=== PATIENT | male | born 1935 | race Caucasian/White ===

== ENCOUNTER 2022-07-19 08:30 | Outpatient (CLI) | payer MEDICARE, BC, SELFPAY ==
--- NOTE | ~2022-07-19 | CT_ITS ---
CT of the Abdomen and Pelvis: Indication: Bladder cancer Technique: 2.5 mm axial scans were obtained through the abdomen and pelvis prior to and following in travenous administration of 130 cc of Omnipaque 350. Dose reduction technique was used on this scan b y utilizing automated exposure control and iterative reconstruction technique. The dose-length produc t (DLP) was 464.66 mGy-cm. Findings: Scans through the lung bases demonstrate 9 mm right basilar pulmonary nodule (axial image 15), with focal internal calcification. The liver, spleen, pancreas, gallbladder, adrenals and kidneys are within normal limits. There are at herosclerotic calcifications of the aorta. There is extensive lymphadenopathy throughout the retrope ritoneum/para-aortic regions, extending along the bilateral common and external iliac chains. Largest individual node probably measures approximately 2.1 x 1.5 cm at the right external iliac chain.. No bowel obstruction or bowel wall thickening. There is no evidence to suggest acute appendicitis. Images through the pelvis were performed. There is apparent large mass with internal calcification at the superior aspect of the urinary bladder extending to the right side, measuring up to approximatel y 5.8 x 6.0 x 3.2 cm in extent. Fat-containing left inguinal hernia present. Prostate gland is not en larged. Impression: Large urinary bladder mass, as detailed above, consistent with history of bladder carcinoma. Extensive lymphadenopathy involving the retroperitoneum and bilateral common and external iliac chain s, as detailed above, consistent with sudha metastatic disease. 9 mm right basilar pulmonary nodule with focal internal calcification. This lesion is indeterminate. If it will affect management, then tissue sampling or PET scan could be considered. Comparison with a ny more remote prior exams would also be useful to assess for the chronicity of this nodule. Please n ote this nodule was not well seen on dedicated chest CT due to mild motion artifact at the lung bases . Reviewed, dictated and finalized at location M. Impression: Large urinary bladder mass, as detailed above, consistent with history of bladd er carcinoma. Extensive lymphadenopathy involving the retroperitoneum and bilateral common an d external iliac chains, as detailed above, consistent with sudha metastatic di sease. 9 mm right basilar pulmonary nodule with focal internal calcification. This les ion is indeterminate. If it will affect management, then tissue sampling or PET scan could be considered. Comparison with any more remote prior exams would al so be useful to assess for the chronicity of this nodule. Please note this nodu le was not well seen on dedicated chest CT due to mild motion artifact at the l cali bases.
--- NOTE | ~2022-07-19 | CT_ITS ---
Clinical Indication: Malignant neoplasm of bladder CT Scan of the Chest with Contrast: Technique: Contiguous sections were acquired throughout the chest after intravenous administration of 130 cc of Omnipaque 350. Dose reduction technique was used on this scan by utilizing automated expos ure control and iterative reconstruction technique. The dose-length product (DLP) was 147.57 mGy-cm. Findings: There is no evidence of any significant mediastinal, hilar or axillary lymphadenopathy. No aortic ane urysm or dissection seen. There are atherosclerotic ossifications of the aorta and coronary arteries. There is no evidence of pleural or pericardial effusion. There is mild bibasilar chronic interstitial disease versus atelectatic change. No suspicious pulmona ry nodule identified. Images through the upper abdomen reveal no abnormalities. There is DISH of the thoracic spine. Impression: No evidence for active malignancy or metastatic disease in the thorax. Mild bibasilar chronic interstitial pulmonary disease versus atelectatic change. Reviewed, dictated and finalized at [facility]. Impression: No evidence for active malignancy or metastatic disease in the thorax. Mild bibasilar chronic interstitial pulmonary disease versus atelectatic change .
[2022-07-19 08:55] LABS: Estimated Glomerular Filt Rate > 60
== END 2022-07-19 08:31 | disposition home or self-care (01) ==
PROVIDERS: PCP Internal Medicine; Visit Provider Radiology Radiation Oncology
DX: C67.9 Malignant neoplasm of bladder, unspecified (principal)
CPT/HCPCS: 71260; 74178; Q9967

== ENCOUNTER 2022-07-27 10:44 | Outpatient (CLI) | payer MEDICARE, BC, SELFPAY ==
[2022-07-27 11:00] LABS: Basophils Percent Auto 0.2 % (0.2-1.2); Eosinophils Percent Auto 0.1 % (0-4.4); Hematocrit 32.4 % (42.0-52.0); Immature Granulocyte Absolute 0.04 K/mm3 (0.00-0.031); Immature Granulocyte Percent A 0.4 % (0-0.5); Lymphocytes Percent Auto 10.8 % (18.3-44.2); Mean Corpuscular Hemoglobin 33.1 pg (26-34); Mean Corpuscular Volume 97.6 fl (80-100); Mean Platelet Volume 10.5 fl (7.4-10.4); Monocytes Absolute Auto 0.9 K/mm3 (0.1-0.6); Monocytes Percent Auto 8.4 % (2.6-8.5); Neutrophils Absolute Auto 8.2 K/mm3 (1.3-6.7); Neutrophils Percent Auto 80.1 % (45.5-73.1); Nucleated Red Blood Cells Perc 0.3 % (0.0-0.2); Platelet Count Result 280 k/mm3 (150-375); Red Blood Count 3.32 M/mm3 (4.6-6.20); Red Cell Distribution Width 18.6 % (11.5-14.5); White Blood Count 10.2 K/mm3 (4.5-10.0)
[2022-07-27 16:27] LABS: Alanine Aminotransferase 20 U/L (6-50); Albumin Level 3.8 g/dL (3.5-5.1); Alkaline Phosphatase 50 U/L (38-126); Anion Gap 9 mmol/L (8-16); Aspartate Amino Transferase 23 U/L (17-59); Bilirubin,Total 0.7 mg/dL (0.2-1.3); Blood Urea Nitrogen 29 mg/dL (9-20); Calcium 8.8 mg/dL (8.4-10.2); Carbon Dioxide 26 mmol/L (22-30); Chloride 99 mmol/L (98-107); Estimated Glomerular Filt Rate > 60; Glucose 158 mg/dL (65-110); Sodium 134 mmol/L (137-145)
== END 2022-07-27 10:45 | disposition home or self-care (01) ==
LOC: ANHLAB 10:47
PROVIDERS: PCP Internal Medicine; Visit Provider Internal Medicine Hematology & Oncology
DX: C67.9 Malignant neoplasm of bladder, unspecified (principal)
CPT/HCPCS: 36415; 80053; 85025

== ENCOUNTER 2022-08-09 01:15 | Day surgery (SDC) | payer MEDICARE, BC, SELFPAY ==
--- NOTE | 2022-07-28 14:33 | PC.NURSE ---
Report to the Outpatient Waiting Room, entrance under the green pavilion located off [facility], at time __1100 on date _08/03/22 . Planned Procedure Time: _1300 . Time changes happen often and if your time is changed the preop area will call you the afternoon before. - You and your visitor will be asked to self-screen and do not enter if you have any COVID symptoms. - A mask is optional within the hospital at this time. Patients may have clear liquids (water, carbonated beverages, clear teas, apple juice) until 3 hours prior to surgery with a maximum of 20 ounces. - No food from midnight until time of surgery - Infants may have breast milk until 4 hours before surgery, infant formula 6 hours prior to surgery. - Children will be allowed to drink immediately following surgery. If applicable, please bring a bottle or sippy cup to assist with drinking. Juice, water, soda, and popsicles are readily available. For infants on formula, please bring formula the day of surgery. Pacifiers are allowed. Take the following medications with a SIP of water the morning of surgery: __METOPROLOL DO NOT STOP ANY OF YOUR OTHER PRESCRIPTION MEDICATIONS PRIOR TO SURGERY ?EXCEPT THE FOLLOWING Medications to discontinue per physician __WIFE STATES CLOPIDOGREL_LAST DOSE 07/28/[address] PARRISH Please no make-up, nail azeri, hairspray, perfume, deodorant, or body powder the day of surgery. No jewelry (including any body piercings) or valuables the day of surgery, leave them at home. Please take a shower or bath the night before, or the morning of, surgery with an antibacterial soap. Wear comfortable, loose fitting clothing. Children are encouraged to wear pajamas. - Jewelry must be removed prior to entering the operating room. Rings and piercings that are not removed may be cut off. - The hospital will not accept responsibility for valuables. - Please leave all valuables, including medications, at home the day of surgery. If you are going home after surgery, a licensed regional dedicated truck driver must drive you home. - NO public transportation without another adult if you receive anesthesia. - We recommend that an adult stay with you for 24 hours following discharge. - We also recommend that you do not drive, make important decision, drink alcoholic beverages, or take any drugs that were not prescribed by your health care provider for at least 24 hours after your discharge time. For Pediatric surgeries, we recommend two adults accompany the child home. Follow any additional instructions given to you from your surgeon. If you or anyone in your household have experienced Covid symptoms in the past week, please notify your surgeon or the nurse liaison at the phone number below for possible testing. Telephone instructions given to _PT'S OLIVIA and asked if any additional questions and then verbalized understanding. Patient advised to call surgeon office or pre surgery nurse liaison [phone] if any additional questions.
[2022-07-28 14:58] VITALS: BMI 22.3
--- NOTE | 2022-08-05 12:44 | PC.NURSE ---
Report to the Outpatient Waiting Room, entrance under the green pavilion located off [facility], at time __0800 on date __08/09/22 . Planned Procedure Time: __1000 . Time changes happen often and if your time is changed the preop area will call you the afternoon before. - You and your visitor will be asked to self-screen and do not enter if you have any COVID symptoms. - A mask is optional within the hospital at this time. Patients may have clear liquids (water, carbonated beverages, clear teas, apple juice) until 3 hours prior to surgery with a maximum of 20 ounces. - No food from midnight until time of surgery - Infants may have breast milk until 4 hours before surgery, infant formula 6 hours prior to surgery. - Children will be allowed to drink immediately following surgery. If applicable, please bring a bottle or sippy cup to assist with drinking. Juice, water, soda, and popsicles are readily available. For infants on formula, please bring formula the day of surgery. Pacifiers are allowed. Take the following medications with a SIP of water the morning of surgery: ___METOPROLOL DO NOT STOP ANY OF YOUR OTHER PRESCRIPTION MEDICATIONS PRIOR TO SURGERY ?EXCEPT THE FOLLOWING Medications to discontinue per physician _WIFE STATES CLOPIDOGREL LAST _DOSE 07/28/22 Date to take last dose Please no make-up, nail luxembourger, hairspray, perfume, deodorant, or body powder the day of surgery. No jewelry (including any body piercings) or valuables the day of surgery, leave them at home. Please take a shower or bath the night before, or the morning of, surgery with an antibacterial soap. Wear comfortable, loose fitting clothing. Children are encouraged to wear pajamas. - Jewelry must be removed prior to entering the operating room. Rings and piercings that are not removed may be cut off. - The hospital will not accept responsibility for valuables. - Please leave all valuables, including medications, at home the day of surgery. If you are going home after surgery, a licensed airport shuttle driver must drive you home. - NO public transportation without another adult if you receive anesthesia. - We recommend that an adult stay with you for 24 hours following discharge. - We also recommend that you do not drive, make important decision, drink alcoholic beverages, or take any drugs that were not prescribed by your health care provider for at least 24 hours after your discharge time. For Pediatric surgeries, we recommend two adults accompany the child home. Follow any additional instructions given to you from your surgeon. If you or anyone in your household have experienced Covid symptoms in the past week, please notify your surgeon or the nurse liaison at the phone number below for possible testing. Telephone instructions given to __PT'S OLIVIA and asked if any additional questions and then verbalized understanding. Patient advised to call surgeon office or pre surgery nurse liaison [phone] if any additional questions.
--- NOTE | 2022-08-08 13:16 | P.PNAN_ITS ---
Anes - Initial Pre Proc Eval Procedure: Operation Date: 08/09/22 10:00 Proposed Procedures p Insertion Rama Cath - Kathy Coffey MD Date/Time: 08/08/22 13:16 Surgeon: Kathy Coffey MD Pre Op Diagnosis: malignant neoplasm of urinary bladder, Unspe site Patient Data Age: 87 Gender: M Height: 1.8 m Weight: 72.6 kg Allergies Allergy/AdvReac Type Severity Reaction Status Date / Time No Known Allergies Allergy Verified 08/09/22 09:07 Home Medications Medication Instructions Recorded Confirmed Type clopidogrel 75 mg tablet 75 mg PO DAILY 11/29/21 08/04/22 History lorazepam 0.5 mg tablet 0.5 mg PO BID 11/29/21 08/04/22 History metoprolol tartrate 25 mg tablet 25 mg PO BID 11/29/21 08/04/22 History simvastatin 20 mg tablet 20 mg PO DAILY 11/29/21 08/04/22 History temazepam 30 mg capsule 30 mg PO HS 11/29/21 08/04/22 History phenazopyridine 200 mg tablet 200 mg PO TID 07/25/22 08/04/22 History Patient hx anesthesia problems: none Family hx anesthesia problems: none Results Review: All pre-operative results and documents have been reviewed as part of the pre- operative evaluation. 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 Social History Social History Smoking packs per day: 1.5 Smoking cigarettes per day: 30.0 Years smoked: 20 Smoking pack-years: 30.00 Smoking status: Former smoker Tobacco type: cigarettes Smoking end date: 02/21/88 Living arrangements: with family Spiritual care concerns: No Anes - Eval Final PreProcedure Day of Procedure 08/08/22 13:16 Patient weight: normal Heart: regular rate and rhythm Lungs: clear to auscultation and normal air movement Airway: Mallampati scale class II Neurological: alert and oriented Last oral intake: >/= 8 hours ASA classification: III Emergent: no Anesthetic plan: proceed Anesthesia type and monitoring: general GIVS and standard monitoring Results Review: All pre-operative results and documents have been reviewed as part of the pre- operative evaluation. Informed Consent: The patient's anesthetic plan and its attendant risks and benefits were discussed with the patient/family/POA. Questions were solicited and answers provided to the satisfaction of the patient/family/POA.
--- NOTE | ~2022-08-09 | XR_ITS ---
XR chest port-a-cath/central, XR fl guide central line place 08/09/2022 11:06 (accession [id number]), 08/09/2022 10:54 (accession [id number]) Indication: Insertion of portacatheter Procedure: 2 fluoroscopic images of the chest. 13 seconds of fluoroscopy. Postprocedure portable ches t. Comparison: No prior studies for comparison. Findings: Heart size is normal. Portacatheter tip in the SVC. Osteopenia. Heart size normal. No focal air space disease, pulmonary edema, pleural effusion or suspected pneumothorax. No acute osseous abn ormality. Impression: 1: No acute cardiopulmonary disease. Reviewed, dictated and finalized at location L. Impression: 1: No acute cardiopulmonary disease. Impression: 1: No acute cardiopulmonary disease.
[2022-08-09 08:08] VITALS: BP 121/54; PULSE 65; RESP 16; TEMP 36.3; O2SAT 95
[2022-08-09 08:10] VITALS: BMI 21.7
[2022-08-09] MEDS: LACTATED RINGERS 1,000 ML 30 ML IV CONT (08:45)
[2022-08-09] MEDS: KETOROLAC 15 MG/ML VIAL (*BKC) IV PUSH (09:03)
--- NOTE | 2022-08-09 09:04 | PM.IMHP ---
H&P: HPI History of Present Illness Date/Time: 08/09/22 09:04 Chief Complaint: bladder cancer Narrative: Pt is a 87 y/o M presenting c bladder cancer. Pt is going to undergo treatment c Keytruda and needs access. Pt denies any previous central venous catheterization. Pt is right handed. 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 Social History Social History Smoking packs per day: 1.5 Smoking cigarettes per day: 30.0 Years smoked: 20 Smoking pack-years: 30.00 Smoking status: Former smoker Tobacco type: cigarettes Smoking end date: 02/21/88 Living arrangements: with family Spiritual care concerns: No Meds Home Medications and Allergies Home Medications Medication Instructions Recorded Confirmed Type clopidogrel 75 mg tablet 75 mg PO DAILY 11/29/21 08/04/22 History lorazepam 0.5 mg tablet 0.5 mg PO BID 11/29/21 08/04/22 History metoprolol tartrate 25 mg tablet 25 mg PO BID 11/29/21 08/04/22 History simvastatin 20 mg tablet 20 mg PO DAILY 11/29/21 08/04/22 History temazepam 30 mg capsule 30 mg PO HS 11/29/21 08/04/22 History phenazopyridine 200 mg tablet 200 mg PO TID 07/25/22 08/04/22 History Allergies Allergy/AdvReac Type Severity Reaction Status Date / Time No Known Allergies Allergy Verified 08/09/22 09:07 Exam Const: General: cooperative, comfortable, no acute distress and ill appearing HENMT: Head: normal to inspection Neck: Neck: normal visual inspection, full ROM and no lymphadenopathy Chest: Chest palpation & inspection: normal inspection of the chest Resp: Auscultation: clear to auscultation bilaterally Cardio: Rate: regular rate Rhythm: regular rhythm GI: Inspection: normal to inspection Assessment and Plan Assessment and plan (1) Bladder cancer: Code(s): C67.9 - Malignant neoplasm of bladder, unspecified Status: Acute Assessment and Plan: will setup for VAD placement on left given right handedness
--- NOTE | 2022-08-09 09:07 | WPDHPUPDATE1 ---
History and Physical Update Update Date/Time: 08/09/22 09:07 History and Physical has been reviewed, including an updated exam of the patient. There are NO changes in the patient's condition. Risks, benefits, and alternatives have been discussed and questions answered. Patient agrees to proceed with procedure.
[2022-08-09 09:14] LABS: INR 1.1; Prothrombin Time 14.7 Seconds (11.1-14.7)
[2022-08-09 09:15] LABS: Partial Thromboplastin Time 37.4 SECONDS (22.3-36.8)
[2022-08-09] MEDS: ceFAZolin 2 GM/D5W 50 ML 2 GM/50 ML BAG IVPB (10:16)
[2022-08-09] MEDS: HEPARIN SODIUM, PORCINE 10,000 UNITS/10 ML VIAL 10000 UNITS IV PUSH (10:34)
[2022-08-09] MEDS: BUPIVACAINE/EPINEPHRINE 0.5% 50 ML VIAL INFILTRATE (10:34)
[2022-08-09] MEDS: HEPARIN SODIUM 5,000 UNITS/ML VIAL 5000 UNITS IRRIGATION (10:40)
--- NOTE | 2022-08-09 10:52 | W.PM.PROC2 ---
Procedure Note - Detailed Date of Procedure 08/09/22 Pre-op Diagnosis Bladder cancer Post-op Diagnosis Same Procedure Performed Placement of left internal jugular venous access device under both ultrasound and fluoroscopic guidance Surgeon Kathy Coffey MD Anesthesia MAC and Local Indications 87-year-old male with bladder cancer needing access for treatment Findings 1st stick left IJ Description of Procedure Patient was brought into the operating room and placed in the supine position. After adequate induction of mac anesthesia, the patient was prepped and draped in normal sterile fashion. Time-out was then done to verify the patient's identity, as well as the procedure being performed. I began by making a small incision in the left chest. I then used the ultrasound to gain access into the left internal jugular vein. Once access was gained, I placed the guidewire in the vein and confirmed proper positioning. I then locally anesthetized the area in the left chest. I then enlarged the incision including making a subcutaneous pocket inferiorly to allow placement of the port itself. I proceeded to tunnel the catheter from the chest to the left neck insertion site. I then placed a dilating sheath over the guidewire into the left internal jugular vein via sterile Seldinger technique. This was once again done and confirmed via fluoroscopic guidance. I then removed the dilator and the guidewire, now just leaving the sheath in the vein. I then fed the previously flushed catheter into the left internal jugular vein under fluoroscopic guidance. At approximately 27 cm, the catheter was noted to be near the atrial caval junction. I then peeled away the sheath, now just leaving the catheter in the vein. I then was able to easily draw and flush from the catheter. The catheter was cut to fit and attached to the port itself. The port was placed into the previously made subcutaneous pocket and sutured in with 0 Ethibond suture. Final fluoroscopic view showed the termination of the catheter at the atrial caval junction with a nice smooth curvature back to the port itself. I was able to gain access to the port with a Guardado needle and was able to easily draw and flush from the port. I then flushed 4 cc of a final heparin flush into the port. The incision was closed with 3 0 Vicryl suture in the subcutaneous tissue and the skin was closed with 4 O Monocryl subcuticular suture. Dermabond was then placed on wound. The patient tolerated the procedure well and will be sent to the recovery room in stable condition. Implants left internal jugular venous access device Estimated Blood Loss 5 Pathology None sent Complications No immediate complications Condition Stable Disposition PACU [facility] Billing Surgery - Charge Forward: Surgery Billing
[2022-08-09 10:55] VITALS: BP 114/55; PULSE 64; RESP 14; O2SAT 95
[2022-08-09 11:25] VITALS: BP 140/44; PULSE 69; RESP 16
[2022-08-09 11:55] VITALS: BP 127/55; PULSE 71; RESP 16
== END 2022-08-09 12:00 | disposition home or self-care (01) ==
PROVIDERS: PCP Internal Medicine; Visit Provider Surgery
PROC: (CPT 36561; principal; 2022-08-09 10:00)
DX: C67.9 Malignant neoplasm of bladder, unspecified (principal); I25.10 Atherosclerotic heart disease of native coronary artery without angina pectoris; E78.5 Hyperlipidemia, unspecified; I25.2 Old myocardial infarction; I12.9 Hypertensive chronic kidney disease with stage 1 through stage 4 chronic kidney disease, or unspecified chronic kidney disease; E11.22 Type 2 diabetes mellitus with diabetic chronic kidney disease; N18.9 Chronic kidney disease, unspecified; F41.9 Anxiety disorder, unspecified; Z85.46 Personal history of malignant neoplasm of prostate; Z87.891 Personal history of nicotine dependence
CPT/HCPCS: 36561; 36415; 77001; 85610; 85730; C1788; J0690; J1644; J1885; J2704; J7040; J7120

== ENCOUNTER 2022-09-03 09:17 | Inpatient (IN) | payer MEDICARE, BC, SELFPAY ==
[2022-09-03] VITALS (29 sets, daily range): BP systolic 116–150; BP diastolic 49–102; PULSE 85–176; RESP 14–32; TEMP 36.4–36.9; O2SAT 91–99; BMI 20.5
--- NOTE | 2022-09-03 | ECG_ITS ---
Measurements Intervals Calypso Rate: 179 P: NH: 0 QRS: -9 QRSD: 98 T: 131 QT: 242 QTc: 418 Interpretive Statements ATRIAL FIBRILLATION WITH RAPID VENTRICULAR RESPONSE EARLY PRECORDIAL R/S TRANSITION CONSIDER INFERIOR INFARCT, AGE INDETERMINATE BORDERLINE ST-T WAVE ABNORMALITY- HIGH LATERAL LEADS BASELINE ARTIFACT- I, II, AVR, AVL ABNORMAL ECG NO PREVIOUS ECG AVAILABLE FOR COMPARISON Electronically Signed On 09-03-2022 10:32:17 CDT by Yg HEARD
--- NOTE | ~2022-09-03 | CT_ITS ---
EXAMINATION: CT abdomen pelvis w con DATE: 09/03/2022 11:44 INDICATION: Suprapubic tenderness. History of bladder cancer. TECHNIQUE: Computed tomography (CT) of the abdomen and pelvis was performed with 100 CC Omnipaque 350 intravenous contrast. Automated exposure control and iterative reconstruction technique were employe d. Exam dose: 513.55 mGy-cm total exam DLP. COMPARISON: 07/19/2022 CT abdomen pelvis FINDINGS: Approximately 9 mm right lower lobe nodule with a nidus of the eccentric calcification is a gain noted. Bilateral lower lobe dependent atelectasis, right greater than left. Minimal right pleura l effusion. Cardiomegaly. Coronary artery calcifications. No pericardial effusion. The liver, gallbladder, bile ducts are unremarkable. Normal splenic size. Approximately 6.5 mm cystic lesion of the body of the pancreas (series 3 image 46).. An additional 5 mm cystic lesion of the pancreatic body is suggested (series 3 image 40). Bilateral adrenal hypertrophy. Approximately 1 cm anterior upper pole right renal probable cyst. The kidneys are otherwise unremarka ble. No urinary tract calculus or hydroureteronephrosis is detected. Very prominent irregular mass with calcification along the right lateral and superior fernandez of the ur inary bladder consistent with bladder malignancy. Radiopaque seeds in the prostate gland. There is atherosclerotic calcification of the abdominal aorta, celiac, superior mesenteric, renal and inferior mesenteric as well as iliac and femoral arteries. No abdominal aortic aneurysm. Again noted is periaortic and aortocaval and bilateral iliac lymphadenopathy consistent with metastat ic disease. Normal appendix. No bowel obstruction or intraperitoneal free air. Bilateral fat-containing inguinal hernias, left larger than right. Small fat-containing umbilical her radha. Prominent multilevel degenerative disc disease of the lumbar spine. Osteopenia. No suspicious osteoly tic or osteoblastic lesions are noted. IMPRESSION: Persistent large bladder mass consistent with malignancy, metastatic abdominal and pelvi c lymphadenopathy 2 small cystic lesions of the pancreas; differential diagnosis includes intraductal papillary mucinou s neoplasm, mucinous cystic neoplasm, serous cystadenoma, neuroendocrine tumor, pseudocysts. Probable 1 cm cyst, anterior upper pole right kidney Reviewed, dictated and finalized at [facility]. Reviewed, dictated and finalized at [facility]. IMPRESSION: Persistent large bladder mass consistent with malignancy, metastat ic abdominal and pelvic lymphadenopathy 2 small cystic lesions of the pancreas; differential diagnosis includes intradu ctal papillary mucinous neoplasm, mucinous cystic neoplasm, serous cystadenoma, neuroendocrine tumor, pseudocysts. Probable 1 cm cyst, anterior upper pole right kidney
--- NOTE | ~2022-09-03 | XR_ITS ---
XR chest 1V portable DATE: 09/03/2022 09:55 INDICATION: Atrial fibrillation with rapid ventricular response TECHNIQUE: Portable AP chest on 09/03/2022 at 0951 hours COMPARISON: 08/09/2022 portable AP chest at 1105 hours FINDINGS: Left internal jugular Port-A-Cath catheter is again noted, distal tip overlying upper right atrium. Normal heart size. Is aortic arch calcification, mild aortic unfolding. No pulmonary infiltrate or consolidation, pleural effusion or pulmonary vascular congestion or pneumo thorax is detected. IMPRESSION: No active cardiopulmonary disease or significant change since 08/09/2022 Reviewed, dictated and finalized at [facility]. IMPRESSION: No active cardiopulmonary disease or significant change since 2022
--- NOTE | ~2022-09-03 | XR_ITS ---
EXAMINATION: XR chest 1V portable DATE: 09/05/2022 13:30 INDICATION: Shortness of breath. TECHNIQUE: A single frontal view of the chest was obtained. COMPARISON: Chest single view 09/03/2022, CT abdomen and pelvis 09/03/2022, chest CT 07/19/2022. FINDINGS: Again seen are reticular opacities in the lower lung zones. No pleural effusion or pneumoth orax. The heart size is normal. There is a left internal jugular port with tip at superior cavoatrial junction. IMPRESSION: 1. Stable mild chronic interstitial lung disease. Reviewed, dictated and finalized at location [facility].
[2022-09-03] MEDS: dilTIAZem HCl INJ 25 MG/5 ML VIAL 10 MG IV PUSH (09:29)
[2022-09-03 09:33] LABS: Basophils Percent Auto 0.2 % (0.2-1.2); Eosinophils Percent Auto 0.2 % (0-4.4); Hematocrit 28.3 % (42.0-52.0); Immature Granulocyte Absolute 0.19 K/mm3 (0.00-0.031); Immature Granulocyte Percent A 1.5 % (0-0.5); Lymphocytes Absolute Auto 2.16 K/mm3 (0.9-3.2); Lymphocytes Percent Auto 16.5 % (18.3-44.2); Mean Corpuscular HGB Conc 31.8 g/dl (32-36); Mean Corpuscular Hemoglobin 32.5 pg (26-34); Mean Corpuscular Volume 102.2 fl (80-100); Mean Platelet Volume 9.9 fl (7.4-10.4); Monocytes Percent Auto 7.6 % (2.6-8.5); Neutrophils Absolute Auto 9.7 K/mm3 (1.3-6.7); Nucleated Red Blood Cells Absolute Auto 0.3 K/mm3 (0.0-0.012); Nucleated Red Blood Cells Perc 2.3 % (0.0-0.2); Platelet Count Result 323 k/mm3 (150-375); Red Blood Count 2.77 M/mm3 (4.6-6.20); White Blood Count 13.1 K/mm3 (4.5-10.0)
--- NOTE | 2022-09-03 09:38 | ED.GENADULT ---
HPI - General Adult General Chief complaint: Arrhythmia/Palpitations <Eligio Mullins PA-C - Last Filed: 09/03/22 17:11> Stated complaint: weakness <Eligio Mullins PA-C - Last Filed: 09/03/22 17:11> Time Seen by Provider: 09/03/22 09:19 <Eligio Mullins PA-C - Last Filed: 09/03/22 17:11> Source: patient <Eligio Mullins PA-C - Last Filed: 09/03/22 17:11> Mode of arrival: EMS <AYANA Rodriguez Last Filed: 09/03/22 17:11> Limitations: no limitations <Eligio Mullins PA-C - Last Filed: 09/03/22 17:11> History of Present Illness HPI narrative: This is a 87-year-old male with PMH of stage IV bladder cancer and active treatment who presents to the ED via EMS with chief complaint generalized weakness and poor appetite for the last couple of weeks. Patient and family report that he had a fall last night while going from the bathroom to the bedroom. Patient's is here and states she had to get neighbors to help get him up a few minutes later. However, denies having any pain whatsoever. He reports he just feels generally very weak and tired. He states it is hard to eat. Denies any fevers, chills, chest pain, shortness of breath, leg swelling, cough. Denies abdominal pain or vomiting. Denies GI bleeding symptoms Per EMS patient is an active A-fib with RVR with rate in the high 170s in route. Pressures stable in the 120s over 90s. Per chart review patient had a partial tumor resection of his bladder cancer last October. He follows with Dr. Royal for oncology. Receiving Keytruda treatments currently. <Eligio Mullins PA-C - Last Filed: 09/03/22 17:11> Related Data Home medications: Home Medications Medication Instructions Recorded Confirmed clopidogrel 75 mg tablet (Plavix) 75 mg PO DAILY 09/03/22 09/03/22 lorazepam 0.5 mg tablet 0.5 mg PO BID 09/03/22 09/03/22 metoprolol tartrate 25 mg tablet 25 mg PO DAILY 09/03/22 09/03/22 phenazopyridine 200 mg tablet 200 mg PO TID PRN dysuria 09/03/22 09/03/22 simvastatin 20 mg tablet 20 mg PO DAILY 09/03/22 09/03/22 temazepam 30 mg capsule 1 mg PO QHS 09/03/22 09/03/22 <Eligio Mullins PA-C - Last Filed: 09/03/22 17:11> Allergies/adverse reactions: Allergies Allergy/AdvReac Type Severity Reaction Status Date / Time No Known Allergies Allergy Verified 09/03/22 09:30 <Eligio Mullins PA-C - Last Filed: 09/03/22 17:11> [facility] Past Medical History Medical History: Medical History (Updated 09/03/22 @ 17:59 by Donita Vega MD) Basal cell carcinoma of nose Coronary artery disease Hyperlipidemia Hypertension Malignant neoplasm metastatic from bladder (2021) Prostate cancer (2004) Status post radiation. <Eligio Mullins PA-C - Last Filed: 09/03/22 17:11> Surgical History Surgical History: Surgical History (Updated 09/03/22 @ 14:31 by La Nieves PA-C) History of basal cell carcinoma excision History of bilateral carpal tunnel release History of bilateral cataract extraction History of coronary artery stent placement History of hand surgery History of transurethral resection of bladder tumor (TURBT) <Eligio Mullins PA-C - Last Filed: 09/03/22 17:11> Family History Family History: Family History Mother Breast cancer Father Throat cancer Sibling Pancreatic cancer <Eligio Mullins PA-C - Last Filed: 09/03/22 17:11> Social History Social History: Social History Social History: Surrogate medical decision maker: Code status: Smoking status: Unknown if ever smoked Alcohol intake: never Substance use: never Lack of Transportation: No Lack of Food: Never True Current Housing: I Have Housing Concerned About Future Housing: No Difficulty Paying Gas/Electric Bills: No Difficulty Paying for Meds: No Currently Unemployed: No Education: High School Diploma/
[2022-09-03 09:57] LABS: Alanine Aminotransferase 23 U/L (6-50); Albumin Level 3.9 g/dL (3.5-5.1); Alkaline Phosphatase 69 U/L (38-126); Anion Gap 12 mmol/L (8-16); Aspartate Amino Transferase 30 U/L (17-59); Bilirubin,Total 2.5 mg/dL (0.2-1.3); Blood Urea Nitrogen 25 mg/dL (9-20); Calcium 8.8 mg/dL (8.4-10.2); Carbon Dioxide 25 mmol/L (22-30); Chloride 100 mmol/L (98-107); Estimated CRCL calculation 44 ml/min; Estimated Glomerular Filt Rate > 60; Glucose 115 mg/dL (65-110); Magnesium 2.3 mg/dL (1.6-2.3); Sodium 137 mmol/L (137-145)
[2022-09-03] MEDS: dilTIAZem HCl INJ 25 MG/5 ML VIAL 15 MG IV PUSH (09:59)
[2022-09-03 10:02] LABS: Anisocytosis 1+ (NORMAL); Hypochromasia 1+ (NORMAL); Macrocytosis 1+ (NORMAL); Ovalocytes 1+ (NORMAL)
[2022-09-03 10:03] LABS: Basophilic Stippling 1+ (NORMAL); Schistocytes Rare (NORMAL)
[2022-09-03 10:05] LABS: Alanine Aminotransferase 24 U/L (6-50); Albumin Level 3.8 g/dL (3.5-5.1); Alkaline Phosphatase 66 U/L (38-126); Aspartate Amino Transferase 37 U/L (17-59); Bilirubin Direct 0.6 mg/dL (0-0.3); Bilirubin,Total 2.4 mg/dL (0.2-1.3)
[2022-09-03 10:07] LABS: INR 1.2; Prothrombin Time 16.2 Seconds (11.1-14.7)
[2022-09-03 10:08] LABS: Partial Thromboplastin Time 38.5 SECONDS (22.3-36.8)
[2022-09-03] MEDS: dilTIAZem 100 MG/100 ML 100 MG/100 ML BAG IV CONT (10:22)
[2022-09-03] MEDS: ENOXAPARIN 40 MG/0.4 ML SYRINGE SUB-Q (11:27)
[2022-09-03 11:41] LABS: Hyaline Casts Urine Present /lpf; Need Manual Microscopic Need Manual; Squamous Epithelial Cell Urine Few /hpf (Few); WBC Clumps Urine Present /HPF
[2022-09-03 11:49] LABS: Appearance Urine Cloudy (Clear); Bilirubin Urine 1+ (Negative); Color Urine Red (Yellow); Glucose Urine UA Negative (Negative); Ketones Urine Negative (Negative); Leukocyte Esterase Ur 3+ LEU/UL (Negative); Nitrate Urine Positive (Negative); Protein Urine 1+ mg/dL (Negative); Specific Grav Ur 1.019 (1.001-1.035)
[2022-09-03 11:58] LABS: Bacteria Urine Trace /hpf; RBC Urine 0-2 /hpf (0-2)
[2022-09-03 12:07] LABS: Add Urine Microscopic? YES
[2022-09-03 12:10] LABS: WBC Urine 21-50 /hpf
[2022-09-03] MEDS: SODIUM CHLORIDE 0.9% IV 1,000 ML 999 ML IV CONT (12:11)
--- NOTE | 2022-09-03 14:12 | PM.IMHP ---
H&P: HPI History of Present Illness Date/Time: 09/03/22 14:30 Chief Complaint: Weakness. Narrative: This is a pleasant 87-year-old male with hypertension, hyperlipidemia, coronary artery disease, prostate cancer in 2004 status post radiation, and metastatic bladder cancer on immunotherapy who presented to the emergency department via EMS from home for evaluation of weakness. The patient provides the following history. He was diagnosed with bladder cancer last year and he was deemed not to be a candidate for chemotherapy or cystectomy. He had several radiation treatments and CT of the abdomen and pelvis at the end of June showed increasing bladder tumor an extensive lymphadenopathy. Radiation treatments were were stopped last month due to adverse effects and he was fairly recently started on Keytruda per Dr. Royal. He has been increasingly weak over time, worse the last several weeks associated with poor appetite. Last night he had a fall and neighbors had come help him up. On arrival to the emergency department he was in atrial fibrillation with rapid ventricular response with rates in the 170s and stable blood pressures. Preliminary workup was significant for a WBC count of 13.1, hemoglobin 9.0, platelets 323, normal electrolytes, BUN 25, creatinine 1.00. Urine was nitrate and leukocyte esterase positive with 21 to 50 WBC and trace bacteria[address] of the abdomen and pelvis showed no acute changes compared to most recent CT. He was started on a diltiazem drip with improvement in his rate and he is being admitted in this setting. At the time my evaluation he complains having to go to the bathroom every 45 minutes and he feels as though he cannot fully evacuate his bladder. Bladder scan showed that he was retaining greater than 500 mL and staff were unable to pass a Rod catheter. Urology was able to place a Rod catheter without issue and the patient reports feeling a lot better now that his bladder is straining. His heart rate has improved significantly as well. He denies fever, chills, sweats, chest pain, shortness a breath, nausea, vomiting, diarrhea. There were no injuries, head trauma, or loss of consciousness in the fall last night. Review of Systems Review of Systems: Twelve systems were reviewed. No fever, chills, or sweats. No recent cold or flu symptoms. He has lost about 45 lb in the last 3 months p.r.n. except as documented, all other systems were reviewed and are negative. FORMERLY [facility], 1928–1983 Past Medical History Medical History (Updated 09/04/22 @ 00:25 by La Nieves PA-C) Basal cell carcinoma of nose Coronary artery disease Hyperlipidemia Hypertension Malignant neoplasm metastatic from bladder (2021) Prostate cancer (2004) Status post radiation. Surgical History Surgical History (Updated 09/03/22 @ 14:31 by La Nieves PA-C) History of basal cell carcinoma excision History of bilateral carpal tunnel release History of bilateral cataract extraction History of coronary artery stent placement History of hand surgery History of transurethral resection of bladder tumor (TURBT) Family History Family History Mother Breast cancer Father Throat cancer Sibling Pancreatic cancer Social History Social History (Updated 09/04/22 @ 14:27 by La Nieves PA-C) Social History: Surrogate medical decision maker: Dorie Neal. Code status: Full code. Smoking status: Unknown if ever smoked Alcohol intake: never Substance use: never Lack of Transportation: No Lack of Food: Never True Current Housing: I Have Housing Concerned About Future Housing: No Difficulty Paying Gas/Electric Bills: No Difficulty Paying for Meds: No Currently Unemployed: No Education: High School Diploma/GED Difficulty w/ Childcare or Family Care: No Spiritual care concerns: No Meds Home Medications and Allergies Home Medications Medication Instructions
[2022-09-03] MEDS: MORPHINE SULFATE (*CRX) 2 MG/ML INJ IV PUSH ×2 (14:13→19:00)
[2022-09-03] MEDS: LIDOCAINE HCL 2% GEL UROJET 10 ML PKG MUCOUS MEM ×2 (15:57→18:11)
--- NOTE | 2022-09-03 16:00 | ADMGEN ---
This patient, Ángel Arango, was admitted to IMU Room 231-01. Patient/family oriented to hospital policies and general routines including ID bracelet, bed and alarms, visiting hours, pain management, procedures, bathroom and other care routines, personal items, smoking policy, room service/diet, and visiting hours. Information on how to activate the Rapid Response Team has been discussed. Patient/Family are encouraged to report perceived risks to care and to ask questions if they do not understand what they are told or what they should do.
[2022-09-03 16:10] LABS: Iron 135 ug/dL (49-181)
[2022-09-03 16:21] LABS: Percent Iron Saturation 47 % (20-50)
[2022-09-03 17:17] LABS: Folic Acid 9.8 ng/mL (2.76->20)
--- NOTE | 2022-09-03 17:56 | WPDURCON ---
Assessment and Plan Assessment and plan (1) Urinary retention: Code(s): R33.9 - Retention of urine, unspecified Status: Acute Assessment and Plan: 87-year-old male with history of prostate cancer status post radiation and metastatic bladder cancer on immunotherapy who presents to the hospital with weakness and found to have clinical signs of urinary tract infection but having urinary retention. - Will plan for catheter placement: Update: able to place a 14 Mohawk catheter via urethra with return of an appropriate volume of orange urine likely due to his Pyridium. Would recommend urine culture, as there is a possibility that the patient's urinalysis has nitrite positive urine due to the fact he was on Pyridium. -would recommend continuing catheter placement at this time during hospitalization. Patient likely having difficulties with urination due to this rigidity causing impingement on the urethra. Therefore may require continued indwelling catheter versus assessment with cystoscopy in the future. Urology Consult Note HPI Date Seen: 09/03/22 Requesting Physician: Briseida Ibrahim DO Primary Care Provider: Remberto Goff, Consult Narrative Narrative: Ángel Arango is a 87 year old male with multiple comorbidities, ventilation in consultation he had prostate cancer status post radiation, as well as metastatic bladder cancer undergoing immunotherapy with Keytruda who presented to the ER for weakness after he fell at home. His creatinine is within normal limits, and his urine is nitrite and leuk esterase positive with trace bacteria, though he had recently taken Pyridium which can cause a nitrite positive nature of the urine. However she was having difficulties with urination found to have 500 cc on a bladder scan. Therefore, Urology was called for evaluation. Of note, patient states he underwent a TURBT at [facility], and after that procedure he had significant penile rigidity in the proximal aspect of the penis, as well as clot retention requiring irrigation afterwards. Since then, he states he has had some difficulty with urination and rigidity has persisted. [facility] Past Medical History Medical History (Updated 09/03/22 @ 17:59 by Donita Vega MD) Basal cell carcinoma of nose Coronary artery disease Hyperlipidemia Hypertension Malignant neoplasm metastatic from bladder (2021) Prostate cancer (2004) Status post radiation. Surgical History Surgical History (Updated 09/03/22 @ 14:31 by La Nieves PA-C) History of basal cell carcinoma excision History of bilateral carpal tunnel release History of bilateral cataract extraction History of coronary artery stent placement History of hand surgery History of transurethral resection of bladder tumor (TURBT) Family History Family History Mother Breast cancer Father Throat cancer Sibling Pancreatic cancer Social History Social History Social History: Surrogate medical decision maker: Code status: Smoking status: Unknown if ever smoked Alcohol intake: never Substance use: never Lack of Transportation: No Lack of Food: Never True Current Housing: I Have Housing Concerned About Future Housing: No Difficulty Paying Gas/Electric Bills: No Difficulty Paying for Meds: No Currently Unemployed: No Education: High School Diploma/GED Difficulty w/ Childcare or Family Care: No Spiritual care concerns: No Meds Home Medications and Allergies Home Medications Medication Instructions Recorded Confirmed Type clopidogrel 75 mg tablet (Plavix) 75 mg PO DAILY 09/03/22 09/03/22 History lorazepam 0.5 mg tablet 0.5 mg PO BID 09/03/22 09/03/22 History metoprolol tartrate 25 mg tablet 25 mg PO DAILY 09/03/22 09/03/22 History phenazopyridine 200 mg tablet 200 mg PO TID PRN dysuria 09/03/22 09/03/22
--- NOTE | 2022-09-03 18:01 | WPDPROCEDUR ---
Procedures Catheter Insertion (Urinary) Urinary Catheter 1: Date of insertion: 09/03/22 Time of insertion: 18:02 Reason for placing: Acute urinary retention Bladder scan/ultrasound used before catheterization: Yes (500cc) Topical anesthesia used: Yes Size (Martiniquais): 14 Catheter balloon size (mL): 10 Catheter balloon amount: 10 Procedure performed: without complications Additional comments: Catheter was placed atraumatically with orange-colored urine due to Pyridium that came out. Catheter was held, and 10 cc of saline was placed via the balloon port. Patient tolerated this well. The difficulty of the catheter bases likely due to the proximal penile rigidity potentially in the corpora versus within the urethra causing impingement.
[2022-09-03] MEDS: dilTIAZem 100 MG/100 ML 100 MG/100 ML BAG 10 MG IV CONT (21:35)
[2022-09-03] MEDS: TEMAZEPAM (*CRX) 15 MG CAPSULE 30 MG PO (21:36)
[2022-09-04] VITALS (17 sets, daily range): BP systolic 118–133; BP diastolic 39–63; PULSE 55–94; RESP 12–28; TEMP 36.4–36.9; O2SAT 90–99
[2022-09-04 04:39] LABS: Hematocrit 23.8 % (42.0-52.0); Hemoglobin 7.3 g/dL (14.0-18.0); Mean Corpuscular HGB Conc 30.7 g/dl (32-36); Mean Corpuscular Volume 104.4 fl (80-100); Mean Platelet Volume 10.2 fl (7.4-10.4); Platelet Count Result 246 k/mm3 (150-375); Red Blood Count 2.28 M/mm3 (4.6-6.20); Red Cell Distribution Width 27.3 % (11.5-14.5); White Blood Count 9.7 K/mm3 (4.5-10.0)
[2022-09-04 05:00] LABS: Anion Gap 9 mmol/L (8-16); Blood Urea Nitrogen 21 mg/dL (9-20); Calcium 7.9 mg/dL (8.4-10.2); Carbon Dioxide 23 mmol/L (22-30); Chloride 105 mmol/L (98-107); Estimated CRCL calculation 46 ml/min; Estimated Glomerular Filt Rate > 60; Glucose 77 mg/dL (65-110); Magnesium 2.2 mg/dL (1.6-2.3); Potassium 3.6 mmol/L (3.4-5.0); Sodium 137 mmol/L (137-145)
[2022-09-04] MEDS: dilTIAZem 100 MG/100 ML 100 MG/100 ML BAG 10 MG IV CONT (06:45)
--- NOTE | 2022-09-04 08:33 | ECG_ITS ---
Measurements Intervals [place] Rate: 72 P: 42 WI: 169 QRS: -13 QRSD: 104 T: 118 QT: 455 QTc: 499 Interpretive Statements SINUS RHYTHM FREQUENT ATRIAL PREMATURE COMPLEXES EARLY PRECORDIAL R/S TRANSITION CONSIDER INFERIOR INFARCT, AGE INDETERMINATE BORDERLINE ST-T WAVE ABNORMALITY- ANTEROLAT/HIGH LAT LEADS BASELINE WANDER- I, II, III, AVL ABNORMAL ECG COMPARISON TO PRIOR ECG 09-03-22 9:22 SINUS RHYTHM NOW PRESENT Electronically Signed On 09-04-2022 16:19:31 CDT by Yg Weber D.O.
[2022-09-04] MEDS: SIMVASTATIN 20 MG TABLET PO (09:37)
[2022-09-04] MEDS: LORazepam (*CRX) 0.5 MG TABLET PO ×2 (09:37→17:18)
[2022-09-04] MEDS: CLOPIDOGREL BISULFATE 75 MG TABLET PO (09:37)
[2022-09-04] MEDS: METOPROLOL TARTRATE 25 MG TABLET PO (09:37)
[2022-09-04] MEDS: MORPHINE SULFATE (*CRX) 2 MG/ML INJ IV PUSH ×3 (09:44→23:19)
--- NOTE | 2022-09-04 10:09 | WPDUROPN2 ---
Progress Note: A&P Assessment and Plan (1) Urinary retention: Code(s): R33.9 - Retention of urine, unspecified Status: Acute Plan 87-year-old male with history of prostate cancer status post radiation and metastatic bladder cancer on immunotherapy who presents to the hospital with weakness and found to have clinical signs of urinary tract infection but having urinary retention.? 14 Hebrew urethral Rod catheter was placed, the difficulty was due to proximal penile rigidity potentially from tumor versus fibrosis likely impinging on urethra. -continue Rod catheter in place. -would recommend continuing catheter placement at this time during hospitalization.? -had a long conversation with the patient and his family about next steps. Options could include continuing Rod catheter placement, versus bilateral nephrostomy tube placement. Would could also consider suprapubic tube placement, though due to his bladder cancer I am not sure this is a good option. I do feel that nephrostomy tubes may be his best chance for long-term symptomatic relief. Subjective Subjective Date/Time Seen: 09/04/22 10:09 Interval history: No acute events overnight. Catheter draining orange colored clear urine. Patient states he feels much better with catheter in place. Exam : Other: Catheter in place, draining well. Uncircumcised phallus, proximal aspect of the phallus still rigid stably. Catheter in place draining clear yellow urine. Objective Data Vital Signs Vital Signs: Vital Signs - 24 hr 09/03/22 10:22 09/03/22 10:15 09/03/22 10:16 Temperature Pulse Rate 120 H 113 H 107 H Respiratory Rate 27 H 23 H Blood Pressure 129/63 129/63 Pulse Oximetry 93 Oxygen Delivery 09/03/22 10:31 09/03/22 11:01 09/03/22 12:01 Temperature Pulse Rate 99 167 H 123 H Respiratory Rate 23 H 22 H 31 H Blood Pressure 129/58 L 142/55 H 148/70 H Pulse Oximetry 95 95 96 Oxygen Delivery 09/03/22 14:19 09/03/22 12:02 09/03/22 12:15 Temperature Pulse Rate 112 H 132 H 155 H Respiratory Rate 19 29 H 19 Blood Pressure 130/55 L Pulse Oximetry 95 Oxygen Delivery 09/03/22 12:32 09/03/22 13:04 09/03/22 13:15 Temperature Pulse Rate 141 H 120 H 146 H Respiratory Rate 32 H 30 H 27 H Blood Pressure Pulse Oximetry Oxygen Delivery 09/03/22 13:29 09/03/22 13:31 09/03/22 13:50 Temperature Pulse Rate 143 H 115 H 106 H Respiratory Rate 14 19 29 H Blood Pressure 132/78 150/102 H Pulse Oximetry 97 96 Oxygen Delivery 09/03/22 15:41 09/03/22 16:00 09/03/22 16:00 Temperature 36.4 C Pulse Rate 111 H 142 H Respiratory Rate 20 Blood Pressure 137/58 L Pulse Oximetry 91 Oxygen Delivery Room Air 09/03/22 18:00 09/03/22 20:00 09/03/22 21:35 Temperature 36.9 C Pulse Rate 90 97 85 Respiratory Rate 20 Blood Pressure 121/55 L 121/55 L Pulse Oximetry 95 Oxygen Delivery 09/03/22 22:59 09/03/22 20:00 09/03/22 20:00 Temperature 36.5 C Pulse Rate 94 97 93 Respiratory Rate 20 20 Blood Pressure 121/49 L Pulse Oximetry 99 95 Oxygen Delivery Room Air 09/03/22 22:00 09/04/22 00:00 09/04/22 00:00 Temperature Pulse Rate 92 62 94 Respiratory Rate 20 Blood Pressure Pulse Oximetry 99 Oxygen Delivery Room Air 09/04/22 01:52 09/04/22 00:00 09/04/22 04:00 Temperature 36.4 C Pulse Rate 72 94 77 Respiratory Rate 20 Blood Pressure 121/49 L 127/39 L Pulse Oximetry 98 Oxygen Delivery 09/04/22 04:00 09/04/22 04:00 09/04/22 06:00 Temperature Pulse Rate 77 72 81 Respiratory Rate 20 Blood Pressure Pulse Oximetry 98 Oxygen Delivery Room Air 09/04/22 04:00 09/04/22 06:45 09/04/22 08:00 Temperature 36.8 C Pulse Rate 77 73 88 Respiratory Rate 28 H Blood Pressure 127/39 L 127/39 L 126/53 L Pulse Oximetry 93 Oxygen Delivery 09/04/22 08:00 09/04/22 08:00 09/04/22 09:26 Temperature Pulse Rat
--- NOTE | 2022-09-04 11:03 | PM.IMPN ---
Progress Note: A&P Assessment and Plan (1) Atrial fibrillation with rapid ventricular response: Code(s): I48.91 - Unspecified atrial fibrillation Status: Acute Assessment and Plan: Appreciate cardiology consultation Bradycardic at times, rate controlled D/c plavix, increase metoprolol (2) Urinary retention: Code(s): R33.9 - Retention of urine, unspecified Status: Acute Assessment and Plan: Appreciate urology consultation, hart to remain in place, consider nephrostomy tubes (3) Generalized weakness: Code(s): R53.1 - Weakness Status: Acute Assessment and Plan: Likely multifactorial (4) Malignant neoplasm metastatic from bladder: Onset Date: 2021 Code(s): C67.9 - Malignant neoplasm of bladder, unspecified Status: Acute Assessment and Plan: Appreciate hematology/oncology consultation (5) Abnormal urinalysis: Code(s): R82.90 - Unspecified abnormal findings in urine Status: Acute Assessment and Plan: Rocephin started for possible UTI 09/03 (6) Macrocytic anemia: Code(s): D53.9 - Nutritional anemia, unspecified Status: Acute Assessment and Plan: d/c lovenox + plavix (7) Hypertension: Code(s): I10 - Essential (primary) hypertension Status: Acute Assessment and Plan: Blood pressure reviewed 09/04 Plan DVT prophylaxis with SCDs--Lovenox being held due to acute anemia of unknown etiology GI prophylaxis not indicated Code status full code Subjective Date/time seen: 09/04/22 11:03 Interval history: 79-year-old male with history of hypertension, hyperlipidemia, heart disease among other comorbidities is presenting with weakness and currently being treated for AFib with RVR as well as urinary retention by Urology. No overnight events noted. No chest pain or shortness of breath. No nausea, vomiting or diarrhea. No fevers or chills. He states that the urinary catheter causes him discomfort at times. Review of Systems Review of Systems: 12 point review of systems was assessed and was negative except as noted in the HPI Exam Narrative: General: No acute distress, alert and oriented per baseline HEENT: Atraumatic, normocephalic, mucous membranes moist CV: Regular rate and rhythm, S1, S2 Lungs: Clear to auscultation bilaterally, no rales or crackles noted, no wheezes, good air entry Abdomen: Soft, nontender, nondistended Extremities: Normal to inspection Skin: No rashes noted, no lesions or wounds seen Psych: Euthymic, normal affect Objective Data Vital Signs Vital Signs: Vital Signs - 24 hr 09/03/22 12:01 09/03/22 14:19 09/03/22 12:02 Temperature Pulse Rate 123 H 112 H 132 H Respiratory Rate 31 H 19 29 H Blood Pressure 148/70 H 130/55 L Pulse Oximetry 96 95 Oxygen Delivery 09/03/22 12:15 09/03/22 12:32 09/03/22 13:04 Temperature Pulse Rate 155 H 141 H 120 H Respiratory Rate 19 32 H 30 H Blood Pressure Pulse Oximetry Oxygen Delivery 09/03/22 13:15 09/03/22 13:29 09/03/22 13:31 Temperature Pulse Rate 146 H 143 H 115 H Respiratory Rate 27 H 14 19 Blood Pressure 132/78 150/102 H Pulse Oximetry 97 96 Oxygen Delivery 09/03/22 13:50 09/03/22 15:41 09/03/22 16:00 Temperature 97.6 F Pulse Rate 106 H 111 H 142 H Respiratory Rate 29 H 20 Blood Pressure 137/58 L Pulse Oximetry 91 Oxygen Delivery 09/03/22 16:00 09/03/22 18:00 09/03/22 20:00 Temperature 98.5 F Pulse Rate 90 97 Respiratory Rate 20 Blood Pressure 121/55 L Pulse Oximetry 95 Oxygen Delivery Room Air 09/03/22 21:35 09/03/22 22:59 09/03/22 20:00 Temperature 97.7 F Pulse Rate 85 94 97 Respiratory Rate 20 20 Blood Pressure 121/55 L 121/49 L Pulse Oximetry 99 95 Oxygen Delivery Room Air 09/03/22 20:00 09/03/22 22:00 09/04/22 00:00 Temperature Pulse Rate 93 92 62 Res
--- NOTE | 2022-09-04 11:13 | PM.CNCAR ---
Assessment and Plan Assessment and plan (1) Atrial fibrillation with rapid ventricular response: Code(s): I48.91 - Unspecified atrial fibrillation Status: Acute Plan This is an 87-year-old man who was in atrial fib with RVR when he was in the emergency room yesterday and severe pain with distention of his bladder and inability to void because of the large mass in the bladder. He feels much better now that a catheter has been placed. He has been placed on intravenous diltiazem and is currently in sinus rhythm. He has remote history of coronary disease with stenting years ago and presumably for that reason has been taking clopidogrel. At this time I will discontinue his IV diltiazem since he is back in sinus rhythm. I believe we should try increasing the dosage of his metoprolol to 50 mg daily and stopping clopidogrel sense he is significantly anemic and anti-platelet therapy has no benefit in atrial fibrillation. Remberto Farley MD [facility] History of Present Illness History of Present Illness Consult date/time: 09/04/22 11:13 Reason For Visit: NEW ONSET AFIB,METASTATIC BLADDER CANCER,ANEMIA,UT Narrative: This is an 87-year-old man I am seeing at the request of the hospitalist because of atrial fibrillation. Patient is unknown to me prior to this encounter. He came to the hospital yesterday with significant lower abdominal pain that apparently was the result of inability of his bladder to drain and urinary retention. A catheter was placed by the urologist on-call and he feels much better. Unfortunately the patient has a history of a large mass with bladder cancer that is known to be metastatic and he is being treated by Oncology as well as Urology. He was not aware of the sense of tachycardia or palpitations yesterday but he was in atrial fib with a rather rapid ventricular response in the emergency room. Of course he was placed on intravenous diltiazem and between then and admission up stairs he converted to sinus rhythm with occasional PVCs. The patient feels relatively well this morning and does not have any ongoing complaints at this time. He does have lab work this morning demonstrating worsening anemia with a hemoglobin that was 9 yesterday and is 7.3 today. He states that he has a history of coronary artery disease with a previous myocardial infarction and percutaneous revascularization. He states this was done by a clinic nurse elsewhere he did not follow up with that physician per his own decision. He did not share the reasons for that. The infarction that he is describing he thinks happened about 9 years ago. His home medical regimen includes metoprolol 25 mg daily lorazepam 0.5 mg b.i.d. clopidogrel 75 mg daily and simvastatin 20 mg daily. Review of Systems Constitutional: Constitutional: Reports lethargy and Reports weakness Eyes: Eyes: Reports no additional eye complaints ENT: Reports system reviewed and no additional complaints, except as documented Cardiovascular: Cardiovascular: Reports no additional cardiovascular complaints Respiratory: Respiratory: Reports dyspnea on exertion Gastrointestinal: Gastrointestinal: Reports as per HPI and Reports abdominal pain Genitourinary: Genitourinary: Reports as per HPI Musculoskeletal: Musculoskeletal: Reports no additional musculoskeletal complaints Neurologic: Reports system reviewed and no additional complaints, except as documented Endocrine: Endocrine: Reports no additional endocrine complaints Hematologic/Lymphatic: Hematologic/Lymphatic: Reports no additional hematologic/lymphatic complaints Allergic/Immunologic: Allergic/Immunologic: Reports no additional allergic/immunologic complaints PMFSH Past Medical History Medical History (Updated 09/04/22 @ 00:25 by La Nieves PA-C) Basal cell carcinoma of nose Coronary artery disease Hyperlipidemia Hypertension Malignant neoplasm metastatic from bladder (2021) Prostate cancer (2004) Statu
[2022-09-04] MEDS: ACETAMINOPHEN 325 MG TABLET 650 MG PO (17:18)
[2022-09-04] MEDS: TEMAZEPAM (*CRX) 15 MG CAPSULE 30 MG PO (21:37)
[2022-09-05] VITALS (15 sets, daily range): BP systolic 104–150; BP diastolic 46–65; PULSE 66–144; RESP 16–22; TEMP 36.1–36.8; O2SAT 90–97
--- NOTE | 2022-09-05 | ECHO_ITS ---
Patient Info Name: Ángel Arango Age: 87 years : 1935 Gender: Male Ht: 71 in Wt: 152 lbs BSA: 1.85 m2 HR: 99 bpm BP: 135 / 46 mmHg Heart Rhythm: Sinus Rhythm Technical Quality: Fair Exam Date: 09/05/2022 11:10 AM Exam Location: [facility] Card Pulmonary Patient Status: Inpatient Admit Date: 09/03/2022 Staff Ordering Physician: La Nieves PA-C Chemist Instrumentation: Anna Sanches RDCS Attending Provider: Briseida Ibrahim DO Referring Physician: Lizbeth DIGGS; Exam Type: CA echo dop color flow w con Study Info Indications - ATRIAL FIBRILLATION Complete two-dimensional, color flow and Doppler transthoracic echocardiogram is performed with contrast to opacify the left ventricle and to improve the deliniation of the left ventricle endocardial borders. Contrast/Agitated Saline Contrast/Ag. Saline: Definity Amount: 3.00 ml Administered By: Anna Sanches RDCS Existing IV Access: Yes IV Access Condition: patent with no signs of infiltration Summary 1. Left ventricular chamber dimension is normal. 2. Left ventricular systolic function is normal, estimated at 55-60%. 3. There is mildly increased left ventricular wall thickness. 4. The left ventricular diastolic function is grade I diastolic dysfunction. 5. Right ventricular chamber dimension is mildly enlarged. 6. Left atrial chamber dimension is mildly enlarged. 7. There is mild tricuspid valve regurgitation. Left Ventricle Left ventricular chamber dimension is normal. Left ventricular systolic function is normal, estimated at 55-60%. There is mildly increased left ventricular wall thickness. The left ventricular diastolic function is grade I diastolic dysfunction. Right Ventricle Right ventricular chamber dimension is mildly enlarged. Right ventricular systolic function is normal. Left Atria Left atrial chamber dimension is mildly enlarged. Right Atria Right atrial chamber dimension is normal. Atrial Septum Intact interatrial septum visualized by color flow imaging. Aortic Valve The aortic valve is trileaflet. There is no aortic valve stenosis. There is trace aortic valve regurgitation. There is mild aortic valve calcification. Pulmonic Valve The pulmonic valve is normal. There is no pulmonic valve stenosis. There is trace pulmonic regurgitation. Mitral Valve The mitral valve has thickened leaflets. There is no mitral valve stenosis. There is trace mitral valve regurgitation. Tricuspid Valve The tricuspid valve leaflets are normal. There is no significant tricuspid valve stenosis. There is mild tricuspid valve regurgitation. No pulmonary hypertension, estimated pulmonary arterial systolic pressure is 33 mmHg. Pericardium/Pleural The pericardium appears normal. There is small pericardial effusion. Inferior Vena Cava Normal inferior vena cava with <50% collapse upon inspiration consistent with normal right atrial pressure, 10 mmHg. Aorta The aortic root size at the sinus of Valsalva is normal. Left Ventricular Outflow Tract Name Value Normal LVOT 2D LVOT Diameter 2.01 cm LVOT Doppler LVOT Peak Gradient 4 mmHg LVOT Mean Gradient
[2022-09-05] MEDS: MORPHINE SULFATE (*CRX) 2 MG/ML INJ IV PUSH ×3 (04:25→20:56)
[2022-09-05 04:56] LABS: Basophils Percent Auto 0.1 % (0.2-1.2); Eosinophils Absolute Auto 0.1 K/mm3 (0-0.3); Eosinophils Percent Auto 1.4 % (0-4.4); Hematocrit 25.4 % (42.0-52.0); Hemoglobin 7.9 g/dL (14.0-18.0); Immature Granulocyte Absolute 0.09 K/mm3 (0.00-0.031); Immature Granulocyte Percent A 0.9 % (0-0.5); Lymphocytes Absolute Auto 1.57 K/mm3 (0.9-3.2); Lymphocytes Percent Auto 16.4 % (18.3-44.2); Mean Corpuscular HGB Conc 31.1 g/dl (32-36); Mean Corpuscular Hemoglobin 32.1 pg (26-34); Mean Corpuscular Volume 103.3 fl (80-100); Mean Platelet Volume 10.1 fl (7.4-10.4); Monocytes Absolute Auto 0.8 K/mm3 (0.1-0.6); Monocytes Percent Auto 7.9 % (2.6-8.5); Neutrophils Percent Auto 73.3 % (45.5-73.1); Nucleated Red Blood Cells Absolute Auto 0.2 K/mm3 (0.0-0.012); Nucleated Red Blood Cells Perc 1.9 % (0.0-0.2); Platelet Count Result 227 k/mm3 (150-375); Red Blood Count 2.46 M/mm3 (4.6-6.20); Red Cell Distribution Width 26.6 % (11.5-14.5); White Blood Count 9.6 K/mm3 (4.5-10.0)
[2022-09-05 05:16] LABS: Alanine Aminotransferase 18 U/L (6-50); Albumin Level 2.8 g/dL (3.5-5.1); Alkaline Phosphatase 52 U/L (38-126); Anion Gap 7 mmol/L (8-16); Aspartate Amino Transferase 23 U/L (17-59); Bilirubin,Total 1.5 mg/dL (0.2-1.3); Blood Urea Nitrogen 16 mg/dL (9-20); Calcium 7.8 mg/dL (8.4-10.2); Carbon Dioxide 26 mmol/L (22-30); Chloride 102 mmol/L (98-107); Estimated CRCL calculation 51 ml/min; Estimated Glomerular Filt Rate > 60; Glucose 81 mg/dL (65-110); Potassium 3.6 mmol/L (3.4-5.0); Sodium 135 mmol/L (137-145)
[2022-09-05 05:25] LABS: Anisocytosis 2+ (NORMAL); Hypochromasia 2+ (NORMAL); Macrocytosis 2+ (NORMAL); Microcytosis 2+ (NORMAL); Poikilocytosis 1+ (NORMAL); Target Cells 1+ (NORMAL)
[2022-09-05 05:27] LABS: Schistocytes Rare (NORMAL)
[2022-09-05] MEDS: LORazepam (*CRX) 0.5 MG TABLET PO ×2 (09:55→22:31)
[2022-09-05] MEDS: METOPROLOL SUCCINATE EXT REL 50 MG TABCR PO (09:55)
[2022-09-05] MEDS: SIMVASTATIN 20 MG TABLET PO (09:56)
--- NOTE | 2022-09-05 10:18 | PM.DS ---
DS: Discharge Diagnosis Discharge Diagnosis (1) Atrial fibrillation with rapid ventricular response: Code(s): I48.91 - Unspecified atrial fibrillation Status: Acute Assessment and Plan: Appreciate cardiology consultation Bradycardic at times, rate controlled D/c plavix, increase metoprolol (2) Urinary retention: Code(s): R33.9 - Retention of urine, unspecified Status: Acute Assessment and Plan: Appreciate urology consultation, hart to remain in place, consider nephrostomy tubes (3) Generalized weakness: Code(s): R53.1 - Weakness Status: Acute Assessment and Plan: Likely multifactorial (4) Malignant neoplasm metastatic from bladder: Onset Date: 2021 Code(s): C67.9 - Malignant neoplasm of bladder, unspecified Status: Acute Assessment and Plan: Appreciate hematology/oncology consultation (5) Abnormal urinalysis: Code(s): R82.90 - Unspecified abnormal findings in urine Status: Acute Assessment and Plan: Rocephin started for possible UTI 09/03 (6) Macrocytic anemia: Code(s): D53.9 - Nutritional anemia, unspecified Status: Acute Assessment and Plan: d/c lovenox + plavix (7) Hypertension: Code(s): I10 - Essential (primary) hypertension Status: Acute Assessment and Plan: Blood pressure reviewed 09/04 Plan DVT prophylaxis with SCDs--Lovenox being held due to acute anemia of unknown etiology GI prophylaxis not indicated Code status full code DS: Summary Time Spent with Patient Time attestation: Total time spent providing and/or coordinating discharge services: Exam Narrative: General: No acute distress, alert and oriented per baseline HEENT: Atraumatic, normocephalic, mucous membranes moist CV: Regular rate and rhythm, S1, S2 Lungs: Clear to auscultation bilaterally, no rales or crackles noted, no wheezes, good air entry Abdomen: Soft, nontender, nondistended Extremities: Normal to inspection Skin: No rashes noted, no lesions or wounds seen Psych: Euthymic, normal affect DS: Data Data Completed and Pending Labs on day of discharge: Labs from last 24 hours 09/05/22 04:36 WBC 9.6 RBC 2.46 L Hgb 7.9 L Hct 25.4 L MCV 103.3 H MCH 32.1 MCHC 31.1 L RDW 26.6 H Plt Count 227 MPV 10.1 Immature Gran % (Auto) 0.9 H Neut % (Auto) 73.3 H Lymph % (Auto) 16.4 L Preston % (Auto) 7.9 Eos % (Auto) 1.4 Baso % (Auto) 0.1 L Lymph # (Auto) 1.57 Preston # (Auto) 0.8 H Eos # (Auto) 0.1 Baso # (Auto) 0.0 Abs Immat Gran (auto) 0.09 H Absolute Neuts (auto) 7.0 H Absolute Nucleated RBC 0.2 H Nucleated RBC % 1.9 H Platelet Estimate Slightly increased Hypochromasia 2+ Poikilocytosis 1+ Anisocytosis 2+ Microcytosis 2+ Macrocytosis 2+ Target Cells 1+ Schistocytes Rare Sodium 135 L Potassium 3.6 Chloride 102 Carbon Dioxide 26 Anion Gap 7 L BUN 16 Creatinine 0.80 Estim Creat Clear Calc 51 Estimated GFR > 60 Glucose 81 Calcium 7.8 L Total Bilirubin 1.5 H AST 23 ALT 18 Alkaline Phosphatase 52 Total Protein 5.0 L Albumin 2.8 L Discharge Plan Discharge Consulting providers: Prince Royal; Remberto Farley; Donita Vega; Eligio Mullins Discharge Medications: No Action clopidogrel [Plavix] 75 mg tablet 75 mg PO DAILY lorazepam 0.5 mg tablet 0.5 mg PO BID temazepam 30 mg capsule 1 mg PO QHS simvastatin 20 mg tablet 20 mg PO DAILY metoprolol tartrate 25 mg tablet 25 mg PO DAILY phenazopyridine 200 mg tablet 200 mg PO TID PRN (Reason: dysuria) Date of admission: 09/03/22 13:32 Primary Care Provider: YarielRemberto Admitting Provider: Briseida Ibrahim Attending physician on admission: Briseida Ibrahim Condition: Stable
--- NOTE | 2022-09-05 10:51 | PC.NURSE ---
Spoke with CIERRA Whitaker at [facility]. Reports pt will plan to do monthly cath changes. Office will follow up with pt after discharge to schedule. Cinder Block Maker will also inform pt to call urology office within 24 hours of discharge.
[2022-09-05] MEDS: PERFLUTREN LIPID MICROSPHERES 1.5 ML VIAL DILUTED TO 10 ML TOTAL VOLUME IV PUSH (11:30)
--- NOTE | 2022-09-05 13:09 | PM.IMPN ---
Progress Note: A&P Assessment and Plan (1) Atrial fibrillation with rapid ventricular response: Code(s): I48.91 - Unspecified atrial fibrillation Status: Acute Assessment and Plan: Appreciate cardiology consultation Bradycardic at times, rate controlled D/c plavix, increase metoprolol (2) Urinary retention: Code(s): R33.9 - Retention of urine, unspecified Status: Acute Assessment and Plan: Appreciate urology consultation, hart to remain in place, consider nephrostomy tubes (3) Generalized weakness: Code(s): R53.1 - Weakness Status: Acute Assessment and Plan: Likely multifactorial (4) Malignant neoplasm metastatic from bladder: Onset Date: 2021 Code(s): C67.9 - Malignant neoplasm of bladder, unspecified Status: Acute Assessment and Plan: Appreciate hematology/oncology consultation (5) Abnormal urinalysis: Code(s): R82.90 - Unspecified abnormal findings in urine Status: Acute Assessment and Plan: Rocephin started for possible UTI 09/03 (6) Macrocytic anemia: Code(s): D53.9 - Nutritional anemia, unspecified Status: Acute Assessment and Plan: d/c lovenox + plavix (7) Hypertension: Code(s): I10 - Essential (primary) hypertension Status: Acute Assessment and Plan: Blood pressure reviewed 09/05 (8) Physical deconditioning: Code(s): R53.81 - Other malaise Status: Acute Assessment and Plan: PT/OT consult pending, may need SNF vs rehab at discharge (9) Anxiety disorder: Code(s): F41.9 - Anxiety disorder, unspecified Status: Acute Assessment and Plan: Continue ativan BID and restoril QHS Mild hypoxia noted, appears to be quite severe and only partially treated outpatient, some atelectasis noted as well, will give extra dose ativan IV x 1 and then IS to bedside, check CXR, do not suspect other underlying pathology contributing to hypoxia Plan DVT prophylaxis with SCDs--Lovenox being held due to acute anemia of unknown etiology GI prophylaxis not indicated Code status full code Subjective Date/time seen: 09/05/22 13:09 Interval history: 79-year-old male with history of hypertension, hyperlipidemia, heart disease among other comorbidities is presenting with weakness and currently being treated for AFib with RVR as well as urinary retention by Urology. No overnight events noted. No chest pain or shortness of breath. No nausea, vomiting or diarrhea. No fevers or chills. Patient very anxious ad nervous about going home since he still feels weak. Review of Systems Review of Systems: 12 point review of systems was assessed and was negative except as noted in the HPI Exam Narrative: General: No acute distress, alert and oriented per baseline HEENT: Atraumatic, normocephalic, mucous membranes moist CV: Regular rate and rhythm, S1, S2 Lungs: Clear to auscultation bilaterally, no rales or crackles noted, no wheezes, good air entry Abdomen: Soft, nontender, nondistended Extremities: Normal to inspection Skin: No rashes noted, no lesions or wounds seen Psych: Euthymic, normal affect Objective Data Vital Signs Vital Signs: Vital Signs - 24 hr 09/04/22 16:00 09/04/22 14:00 09/04/22 16:00 Temperature 98.4 F Pulse Rate 84 68 79 Respiratory Rate 12 Blood Pressure 133/52 L Pulse Oximetry 90 Oxygen Delivery Oxygen Flow Rate 09/04/22 18:00 09/04/22 16:00 09/04/22 20:00 Temperature 97.6 F Pulse Rate 80 73 Respiratory Rate 20 Blood Pressure 118/40 L Pulse Oximetry 95 Oxygen Delivery Room Air Oxygen Flow Rate 09/04/22 20:00 09/04/22 20:00 09/04/22 22:00 Temperature Pulse Rate 73 76 90 Respiratory Rate 20 Blood Pressure Pulse Oximetry 95 Oxygen Delivery Room Air Oxygen Flow Rate 09/04/22 23:17 09/05/22 00:00 09/05/22
[2022-09-05] MEDS: LORazepam INJ (*CRX) 2 MG/ML VIAL 1 MG IV PUSH (13:55)
--- NOTE | 2022-09-05 16:32 | PM.PNCARD ---
Progress Note: A&P Assessment and Plan (1) Atrial fibrillation: Code(s): I48.91 - Unspecified atrial fibrillation Status: Acute Assessment and Plan: Recurrence of atrial fibrillation with RVR this afternoon with heart rate in the 140's. He is asymptomatic. Will attempt rhythm control with amiodarone since he is unable to be anticoagulated because of anemia Continue metoprolol Continue to monitor on telemetry Subjective Date/time seen: 09/05/22 16:32 Cardiology follow up for atrial fibrillation Interval history: Recurrence of atrial fibrillation earlier this afternoon. He denies any palpitations, chest pain, shortness of breath. Has no complaints at the time of my visit with him. Review of Systems Constitutional: Constitutional: Reports lethargy and Reports weakness Eyes: Eyes: Reports no additional eye complaints ENT: Reports system reviewed and no additional complaints, except as documented Cardiovascular: Cardiovascular: Reports no additional cardiovascular complaints and Reports dyspnea on exertion Respiratory: Respiratory: Reports dyspnea on exertion Gastrointestinal: Gastrointestinal: Reports as per HPI and Reports abdominal pain Genitourinary: Genitourinary: Reports as per HPI Musculoskeletal: Musculoskeletal: Reports no additional musculoskeletal complaints Neurologic: Reports system reviewed and no additional complaints, except as documented and Reports weakness Endocrine: Endocrine: Reports no additional endocrine complaints Hematologic/Lymphatic: Hematologic/Lymphatic: Reports no additional hematologic/lymphatic complaints Allergic/Immunologic: Allergic/Immunologic: Reports no additional allergic/immunologic complaints Exam Const: General: comfortable and no acute distress Other: Elderly frail looking man no distress HENMT: Mouth: Yes moist mucous membranes Eyes: Sclera: sclerae normal Neck: Neck: supple and no JVD Other: Normal carotid pulses Resp: Effort & Inspection: normal respiratory effort Auscultation: clear to auscultation bilaterally Cardio: Rate: tachycardic Rhythm: abnormal rhythm irregularly irregular Other: soft systolic murmur does not radiate from the left sternal border GI: Auscultation: normal bowel sounds Urinary Catheter: Urinary Catheter: patent and draining Skin: General skin exam: normal color Neuro: Other: Alert and oriented x3 Extrem: Other: Adequate perfusion, no edema Objective Data Vital Signs Vital Signs: Vital Signs - 24 hr 09/04/22 18:00 09/04/22 20:00 09/04/22 20:00 Temperature 36.4 C Pulse Rate 80 73 73 Respiratory Rate 20 20 Blood Pressure 118/40 L Pulse Oximetry 95 95 Oxygen Delivery Room Air Oxygen Flow Rate 09/04/22 20:00 09/04/22 22:00 09/04/22 23:17 Temperature 36.4 C Pulse Rate 76 90 76 Respiratory Rate 16 Blood Pressure 133/52 L Pulse Oximetry 97 Oxygen Delivery Oxygen Flow Rate 09/05/22 00:00 09/05/22 00:00 09/05/22 02:00 Temperature Pulse Rate 76 66 72 Respiratory Rate 16 Blood Pressure Pulse Oximetry 97 Oxygen Delivery Room Air Oxygen Flow Rate 09/05/22 04:00 09/05/22 04:00 09/05/22 04:00 Temperature 36.5 C Pulse Rate 83 74 83 Respiratory Rate 18 18 Blood Pressure 135/46 L Pulse Oximetry 94 94 Oxygen Delivery Room Air Oxygen Flow Rate 09/05/22 06:00 09/05/22 08:00 09/05/22 09:55 Temperature 36.8 C Pulse Rate 70 92 100 Respiratory Rate 22 H Blood Pressure 150/54 H Pulse Oximetry 90 Oxygen Delivery Oxygen Flow Rate 09/05/22 08:00 09/05/22 12:00 09/05/22 08:00 Temperature 36.6 C Pulse Rate 88 83 Respiratory Rate 17 18 Blood Pressure 150/54 H 122/61 Pulse Oximetry 96 96 Oxygen Delivery Nasal Cannula Oxygen Flow Rate 2 09/05/22 16:00 Temperature 36.4 C Pulse Rate 131 H Respiratory Rate 17 Blood Pressure 123/65 Pulse Oximetry 94 Oxygen Deliver
[2022-09-05] MEDS: AMIODARONE 150 MG/D5W 100 ML 150 MG/100 ML BAG 600 MG IV CONT (16:47)
[2022-09-05] MEDS: AMIODARONE 360 MG/D5W 200 ML 360 MG/200 ML BAG 33.33 MG IV CONT (17:12)
--- NOTE | 2022-09-05 18:35 | PDONCCN ---
HPI - Date of Consult Date/Time: 09/05/22 18:35 Requesting Physician: Briseida Ibrahim DO Primary Care Provider: Remberto Goff, - Consult Narrative Reason for consult: Metastatic bladder cancer Narrative: Ángel Arango is a 87 year old male with history of metastatic bladder cancer initially diagnosed and had TURBT done in October 2021 that showed high-grade muscle invasive urothelial carcinoma. He was found not to be a surgical candidate. He received radiation therapy treatment completed in January 2022 but further treatment was discontinued due to worsening of urinary symptoms. CT scan done in June showed enlarging bladder mass with extensive lymphadenopathy and pulmonary metastasis. He was started on immunotherapy with Keytruda and received 1st treatment on August 15, 2022. He came into the hospital with generalized weakness and found to be in atrial fibrillation with rapid ventricular response rate. Labs also showed anemia with hemoglobin of 9.0 and UA was positive for UTI. Patient was not charged on antibiotic and Rod catheter was placed. Labs showed hemoglobin dropped to 7.9. Platelet and WBC count remains stable. He denies any bleeding. Other labs showed normal of and studies and normal vitamin B12 level. Review of Systems - Review of Systems All systems reviewed & are unremarkable except as noted in HPI and bel - Neurologic Reports system reviewed and no additional complaints, except as documented, Reports weakness PMFSH Medical History: Medical History (This Medical Record has been edited. 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 Surgical History: Surgical History (This Medical Record has been edited. Action required.) History of basal cell carcinoma excision History of bilateral carpal tunnel release History of bilateral cataract extraction History of coronary artery stent placement History of hand surgery History of transurethral resection of bladder tumor (TURBT) Family History: Family History (This Medical Record has been edited. Action required.) Mother Breast cancer Father Throat cancer Sibling Pancreatic cancer - Social History Social History: Social History (This Medical Record has been edited. Action required.) Alcohol Use: Alcohol intake: never Substance Use: Substance use: never Others: Spiritual care concerns: No Living Arrangements: Living arrangements: with family Smoking Status: Smoking status: Unknown if ever smoked Tobacco type: cigarettes Smoking end date: 02/21/88 Smoking Pack-years: Smoking packs per day: 1.5 Years smoked: 20 Social Determinants of Health: Has the Lack of Transportation Kept You From Medical Appointments or From Getting Medications?: No Within the Past 12 Months, Were You Worried Whether Your Food Would Run Out Before You Got Money to Buy More?: Never True What is Your Housing Situation Today?: I Have Housing Are You Worried That in the Next 2 Months, You May Not Have Your Own Housing to Live In?: No Do You Have Trouble Paying Your Heating Or Electricity Bill?: No Do You Have Trouble Paying For Medicines?: No Are You Currently Unemployed and Looking for Work?: No Highest Level of Education Completed: High School Diploma/GED Do You Have Trouble With Childcare or the Care of a Family Member?: No Exam - Vital Signs Vital Signs - 24 hr 09/04/22 20:00 09/04/22 20:00 09/04/22 20:00 Temperature 36.4 C Pulse Ra
[2022-09-05 20:02] LABS: Lactate Dehydrogenase 197 U/L (120-246)
[2022-09-05] MEDS: TEMAZEPAM (*CRX) 15 MG CAPSULE 30 MG PO (20:53)
[2022-09-05] MEDS: HYDROcodone/acetaminophen (*CRX) 5-325 MG TABLET 1 TAB PO (23:14)
[2022-09-06] VITALS (15 sets, daily range): BP systolic 110–127; BP diastolic 48–64; PULSE 66–116; RESP 18–24; TEMP 36.1–36.9; O2SAT 90–99
[2022-09-06 05:23] LABS: Basophils Percent Auto 0.1 % (0.2-1.2); Eosinophils Absolute Auto 0.1 K/mm3 (0-0.3); Eosinophils Percent Auto 1.3 % (0-4.4); Hemoglobin 8.2 g/dL (14.0-18.0); Immature Granulocyte Absolute 0.11 K/mm3 (0.00-0.031); Immature Granulocyte Percent A 1.3 % (0-0.5); Lymphocytes Absolute Auto 1.36 K/mm3 (0.9-3.2); Lymphocytes Percent Auto 15.9 % (18.3-44.2); Mean Corpuscular HGB Conc 31.5 g/dl (32-36); Mean Corpuscular Hemoglobin 32.8 pg (26-34); Mean Platelet Volume 9.7 fl (7.4-10.4); Monocytes Absolute Auto 0.8 K/mm3 (0.1-0.6); Monocytes Percent Auto 8.8 % (2.6-8.5); Neutrophils Absolute Auto 6.2 K/mm3 (1.3-6.7); Neutrophils Percent Auto 72.6 % (45.5-73.1); Nucleated Red Blood Cells Absolute Auto 0.1 K/mm3 (0.0-0.012); Nucleated Red Blood Cells Perc 1.6 % (0.0-0.2); Platelet Count Result 189 k/mm3 (150-375); Red Cell Distribution Width 26.5 % (11.5-14.5); White Blood Count 8.6 K/mm3 (4.5-10.0)
[2022-09-06 05:33] LABS: Alanine Aminotransferase 19 U/L (6-50); Albumin Level 2.6 g/dL (3.5-5.1); Alkaline Phosphatase 51 U/L (38-126); Anion Gap 3 mmol/L (8-16); Aspartate Amino Transferase 21 U/L (17-59); Bilirubin,Total 1.1 mg/dL (0.2-1.3); Blood Urea Nitrogen 12 mg/dL (9-20); Calcium 7.7 mg/dL (8.4-10.2); Carbon Dioxide 31 mmol/L (22-30); Chloride 99 mmol/L (98-107); Estimated CRCL calculation 61 ml/min; Estimated Glomerular Filt Rate > 60; Glucose 100 mg/dL (65-110); Potassium 3.5 mmol/L (3.4-5.0); Sodium 133 mmol/L (137-145)
[2022-09-06 05:44] LABS: Platelet Estimate Adequate (Adequate)
[2022-09-06 05:45] LABS: Anisocytosis 1+ (NORMAL); Hypochromasia 1+ (NORMAL); Microcytosis 1+ (NORMAL); Ovalocytes 1+ (NORMAL)
[2022-09-06 05:46] LABS: Schistocytes None Seen (NORMAL)
--- NOTE | 2022-09-06 08:43 | PM.IMPN ---
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 Status: Acute Assessment and Plan: Appreciate hematology/oncology consultation, no further recs, transfuse if less than 7, f/u outpatient (5) Abnormal urinalysis: Status: Acute Assessment and Plan: Rocephin started for possible UTI 09/03, end date 09/09 Transition to oral abx 09/06 with keflex, urine cx showed <10K CFU GPC (6) Macrocytic anemia: Status: Acute Assessment and Plan: d/c lovenox + plavix (7) Hypertension: Status: Acute Assessment and Plan: Blood pressure reviewed 09/06 (8) Physical deconditioning: Status: Acute Assessment and Plan: PT/OT consult pending, may need SNF vs rehab at discharge OT rec SNF, PT pending, likely SNF at d/c, d/w care [facility] (9) Anxiety disorder: Status: Acute Assessment and Plan: Continue ativan BID and restoril QHS 09/05: Mild hypoxia noted, appears to be quite severe and only partially treated outpatient, some atelectasis noted as well, will give extra dose ativan IV x 1 and then IS to bedside, check CXR, do not suspect other underlying pathology contributing to hypoxia 09/06: resolved, on RA after anxiety treated, cont IS, monitor Plan DVT prophylaxis with SCDs--Lovenox being held due to acute anemia of unknown etiology GI prophylaxis not indicated Code status full code Subjective Date/time seen: 09/06/22 08:43 Interval history: 79-year-old male with history of hypertension, hyperlipidemia, heart disease among other comorbidities is presenting with weakness and currently being treated for AFib with RVR as well as urinary retention by Urology. No overnight events noted. No chest pain or shortness of breath. No nausea, vomiting or diarrhea. No fevers or chills. Patient very anxious ad nervous about going home since he still feels weak. Review of Systems Review of Systems: 12 point review of systems was assessed and was negative except as noted in the HPI Exam Narrative: General: No acute distress, alert and oriented per baseline HEENT: Atraumatic, normocephalic, mucous membranes moist CV: Irregularly irregular, S1, S2 Lungs: Clear to auscultation bilaterally, no rales or crackles noted, no wheezes, good air entry Abdomen: Soft, nontender, nondistended Extremities: Normal to inspection Skin: No rashes noted, no lesions or wounds seen Psych: Euthymic, normal affect Objective Data Vital Signs Vital Signs: Vital Signs - 24 hr 09/05/22 09:55 09/05/22 12:00 09/05/22 16:00 Temperature 97.8 F 97.6 F Pulse Rate 100 88 131 H Respiratory Rate 17 17 Blood Pressure 122/61 123/65 Pulse Oximetry 96 94 Oxygen Delivery Oxygen Flow Rate 09/05/22 10:00 09/05/22 12:00 09/05/22 14:00 Temperature Pulse Rate 82 88 96 Respiratory Rate Blood Pressure Pulse Oximetry Oxygen Delivery Oxygen Flow Rate 09/05/22 16:00 09/05/22 16:47 09/05/22 12:00 Temperature Pulse Rate 144 H 144 H Respiratory Rate Blood Pressure 123/65 Pulse Oximetry 96 Oxygen Delivery Nasal Cannula Oxygen Flow Rate 2 09/05/22 17:12 09/05/22 18:00 09/05/22 16:00 Temperature Pulse Rate 140 H 110 H Respiratory Rate Blood Pressure 123/65 Pulse Oximetry 94 Oxygen Delivery Nasal Cannula Oxygen Fl
--- NOTE | 2022-09-06 09:01 | PM.PNCARD ---
Progress Note: A&P Assessment and Plan (1) Atrial fibrillation: Code(s): I48.91 - Unspecified atrial fibrillation Status: Acute Assessment and Plan: Recurrence of atrial fibrillation with RVR this afternoon with heart rate in the 140's. He is asymptomatic. Converted to sinus rhythm om amiodarone. Will discontinue amiodarone gtt and transition to amiodarone p.o. 200mg daily. Continue metoprolol OK for discharge today from a cardiac standpoint Will arrange for follow up in our office. Subjective Date/time seen: 09/06/22 09:01 Cardiology follow up for atrial fibrillation Interval history: He is back in sinus rhythm this morning. Denies any palpitations, chest pain, shortness of breath. Complains of lack of appetite and weakness. Review of Systems Constitutional: Constitutional: Reports lethargy and Reports weakness Eyes: Eyes: Reports no additional eye complaints ENT: Reports system reviewed and no additional complaints, except as documented Cardiovascular: Cardiovascular: Reports no additional cardiovascular complaints and Reports dyspnea on exertion Respiratory: Respiratory: Reports dyspnea on exertion Gastrointestinal: Gastrointestinal: Reports as per HPI and Reports abdominal pain Genitourinary: Genitourinary: Reports as per HPI Musculoskeletal: Musculoskeletal: Reports no additional musculoskeletal complaints Neurologic: Reports system reviewed and no additional complaints, except as documented and Reports weakness Endocrine: Endocrine: Reports no additional endocrine complaints Hematologic/Lymphatic: Hematologic/Lymphatic: Reports no additional hematologic/lymphatic complaints Allergic/Immunologic: Allergic/Immunologic: Reports no additional allergic/immunologic complaints Exam Const: General: comfortable and no acute distress Other: Elderly frail looking man no distress HENMT: Mouth: Yes moist mucous membranes Eyes: Sclera: sclerae normal Neck: Neck: supple and no JVD Other: Normal carotid pulses Resp: Effort & Inspection: normal respiratory effort Auscultation: clear to auscultation bilaterally Cardio: Rate: regular rate Rhythm: regular rhythm and abnormal rhythm with ectopic beats Other: soft systolic murmur does not radiate from the left sternal border GI: Auscultation: normal bowel sounds Urinary Catheter: Urinary Catheter: patent and draining Skin: General skin exam: normal color Neuro: Other: Alert and oriented x3 Extrem: Other: Adequate perfusion, no edema Objective Data Vital Signs Vital Signs: Vital Signs - 24 hr 09/05/22 09:55 09/05/22 12:00 09/05/22 16:00 Temperature 36.6 C 36.4 C Pulse Rate 100 88 131 H Respiratory Rate 17 17 Blood Pressure 122/61 123/65 Pulse Oximetry 96 94 Oxygen Delivery Oxygen Flow Rate 09/05/22 10:00 09/05/22 12:00 09/05/22 14:00 Temperature Pulse Rate 82 88 96 Respiratory Rate Blood Pressure Pulse Oximetry Oxygen Delivery Oxygen Flow Rate 09/05/22 16:00 09/05/22 16:47 09/05/22 12:00 Temperature Pulse Rate 144 H 144 H Respiratory Rate Blood Pressure 123/65 Pulse Oximetry 96 Oxygen Delivery Nasal Cannula Oxygen Flow Rate 2 09/05/22 17:12 09/05/22 18:00 09/05/22 16:00 Temperature Pulse Rate 140 H 110 H Respiratory Rate Blood Pressure 123/65 Pulse Oximetry 94 Oxygen Delivery Nasal Cannula Oxygen Flow Rate 1 09/05/22 20:00 09/05/22 20:00 09/05/22 20:00 Temperature 36.1 C L Pulse Rate 128 H 112 H Respiratory Rate 18 Blood Pressure 104/54 L Pulse Oximetry 95 Oxygen Delivery Room Air Oxygen Flow Rate 09/05/22 22:00 09/06/22 00:00 09/06/22 00:00 Temperature 36.4 C Pulse Rate 113 H 116 H 83 Respiratory Rate 20 Blood Pressure 110/62 Pulse Oximetry 98 Oxygen Delivery Oxygen Flow Rate 09/06/22 00:00 09/06/22 02:00 09/06/22 04:00 Temperature 36.3
[2022-09-06] MEDS: LORazepam (*CRX) 0.5 MG TABLET PO ×3 (10:20→21:11)
[2022-09-06] MEDS: METOPROLOL SUCCINATE EXT REL 50 MG TABCR PO (10:20)
[2022-09-06] MEDS: SIMVASTATIN 20 MG TABLET PO (10:20)
--- NOTE | 2022-09-06 11:02 | PCOTNOTE ---
Patient refused treatment this session due to moderate fatigue. Patient stated he would try later on just not right now . Patient declined sitting at the edge of the bed also.
[2022-09-06] MEDS: AMIODARONE 360 MG/D5W 200 ML 360 MG/200 ML BAG 16.67 MG IV CONT (11:03)
[2022-09-06] MEDS: MORPHINE SULFATE (*CRX) 2 MG/ML INJ IV PUSH ×3 (11:05→20:41)
--- NOTE | 2022-09-06 12:42 | PCOTNOTE ---
Patient refused again this afternoon. Per RN, Patient is supposed to discharge this date.
[2022-09-06] MEDS: AMIODARONE HCL 200 MG TABLET PO (13:50)
[2022-09-06] MEDS: CEPHALEXIN 500 MG CAPSULE PO ×3 (14:27→23:28)
--- NOTE | 2022-09-06 15:34 | PM.DS ---
DS: Admitting Diagnosis Discharge Date 09/06/22 Admitting Diagnosis weakness DS: Discharge Diagnosis Discharge Diagnosis Plan Assessment and Plan (1) Atrial fibrillation with rapid ventricular response: ?Status:?Acute ?Assessment and Plan: Appreciate cardiology consultation Bradycardic at times, rate controlled D/c plavix, increase metoprolol Amiodarone started 09/05 for better rhythm control (2) Urinary retention: ?Status:?Acute ?Assessment and Plan: Appreciate urology consultation, hart to remain in place, consider nephrostomy tubes (3) Generalized weakness: ?Status:?Acute ?Assessment and Plan: Likely multifactorial (4) Malignant neoplasm metastatic from bladder: ?Onset Date:?2021 ?Status:?Acute ?Assessment and Plan: Appreciate hematology/oncology consultation, no further recs, transfuse if less than 7, f/u outpatient (5) Abnormal urinalysis: ?Status:?Acute ?Assessment and Plan: Rocephin started for possible UTI 09/03, end date 09/09 Transition to oral abx 09/06 with keflex, urine cx showed <10K CFU GPC (6) Macrocytic anemia: ?Status:?Acute ?Assessment and Plan: d/c lovenox + plavix (7) Hypertension: ?Status:?Acute ?Assessment and Plan: Blood pressure reviewed 09/06 (8) Physical deconditioning: ?Status:?Acute ?Assessment and Plan: PT/OT consult pending, may need SNF vs rehab at discharge OT rec SNF, PT pending, likely SNF at d/c, d/w care coord (9) Anxiety disorder: ?Status:?Acute ?Assessment and Plan: Continue ativan BID and restoril QHS 09/05: Mild hypoxia noted, appears to be quite severe and only partially treated outpatient, some atelectasis noted as well, will give extra dose ativan IV x 1 and then IS to bedside, check CXR, do not suspect other underlying pathology contributing to hypoxia 09/06: resolved, on RA after anxiety treated, cont IS, monitor DS: Summary Hospital Course Hospital Course: 79-year-old male with history of hypertension, hyperlipidemia, bladder cancer, heart disease among other comorbidities is presenting with weakness and currently being treated for AFib with RVR as well as urinary retention by Urology. Oncology was consulted and recommended workup for the possible hemolytic anemia and follow-up outpatient. Cardiology was consulted and recommended discontinuing the Plavix and Cardizem and increasing metoprolol from 25-50 mg daily. Urology was consulted and placed a Hart and recommended leaving that in place at discharge. Patient will need ongoing catheter either suprapubic or bilateral nephrostomy tubes, follow-up outpatient with Urology. Please see above and med rec for details. Time Spent with Patient Time attestation: Total time spent providing and/or coordinating discharge services: Exam Narrative: General: No acute distress, alert and oriented per baseline HEENT: Atraumatic, normocephalic, mucous membranes moist CV: Irregularly irregular, S1, S2 Lungs: Clear to auscultation bilaterally, no rales or crackles noted, no wheezes, good air entry Abdomen: Soft, nontender, nondistended Extremities: Normal to inspection Skin: No rashes noted, no lesions or wounds seen Psych: Euthymic, normal affect DS: Data Data Completed and Pending Labs on day of discharge: Labs from last 24 hours 09/06/22 09/05/22 05:10 19:27 WBC 8.6 RBC 2.50 L Hgb 8.2 L Hct 26.0 L MCV 104.0 H MCH 32.8 MCHC 31.5 L RDW 26.5 H Plt Count 189 MPV 9.7 Immature Gran % (Auto) 1.3 H Neut % (Auto) 72.6 Lymph % (Auto) 15.9 L [place] % (Auto) 8.8 H Eos % (Auto) 1.3 Baso % (Auto) 0.1 L Lymph # (Auto) 1.36 [place] # (Auto) 0.8 H Eos # (Auto) 0.1 Baso # (Auto) 0.0 Abs Immat Gran (auto) 0.11 H Absolute Neuts (auto) 6.2 Absolute Nucleated RBC 0.1 H Nucleated RBC % 1.6 H Platelet Estimate Adequate Hypochromasia 1+ Anisocytos
[2022-09-06] MEDS: TEMAZEPAM (*CRX) 15 MG CAPSULE 30 MG PO (20:41)
[2022-09-07] VITALS (9 sets, daily range): BP systolic 102–121; BP diastolic 44–52; PULSE 69–91; RESP 18–24; TEMP 36.3–36.9; O2SAT 90–96
[2022-09-07] MEDS: MORPHINE SULFATE (*CRX) 2 MG/ML INJ IV PUSH ×2 (03:47→09:38)
[2022-09-07 04:48] LABS: Basophils Percent Auto 0.2 % (0.2-1.2); Eosinophils Absolute Auto 0.1 K/mm3 (0-0.3); Eosinophils Percent Auto 1.2 % (0-4.4); Hematocrit 24.3 % (42.0-52.0); Hemoglobin 7.6 g/dL (14.0-18.0); Immature Granulocyte Absolute 0.09 K/mm3 (0.00-0.031); Immature Granulocyte Percent A 0.9 % (0-0.5); Lymphocytes Absolute Auto 1.29 K/mm3 (0.9-3.2); Lymphocytes Percent Auto 13.2 % (18.3-44.2); Mean Corpuscular HGB Conc 31.3 g/dl (32-36); Mean Corpuscular Hemoglobin 32.2 pg (26-34); Mean Platelet Volume 10.2 fl (7.4-10.4); Monocytes Absolute Auto 0.7 K/mm3 (0.1-0.6); Monocytes Percent Auto 7.5 % (2.6-8.5); Neutrophils Absolute Auto 7.5 K/mm3 (1.3-6.7); Nucleated Red Blood Cells Absolute Auto 0.1 K/mm3 (0.0-0.012); Nucleated Red Blood Cells Perc 1.1 % (0.0-0.2); Platelet Count Result 199 k/mm3 (150-375); Red Blood Count 2.36 M/mm3 (4.6-6.20); Red Cell Distribution Width 26.2 % (11.5-14.5); White Blood Count 9.8 K/mm3 (4.5-10.0)
[2022-09-07 05:00] LABS: Alanine Aminotransferase 20 U/L (6-50); Albumin Level 2.5 g/dL (3.5-5.1); Alkaline Phosphatase 49 U/L (38-126); Anion Gap 4 mmol/L (8-16); Aspartate Amino Transferase 23 U/L (17-59); Bilirubin,Total 1.5 mg/dL (0.2-1.3); Blood Urea Nitrogen 9 mg/dL (9-20); Calcium 7.7 mg/dL (8.4-10.2); Carbon Dioxide 30 mmol/L (22-30); Chloride 100 mmol/L (98-107); Estimated CRCL calculation 61 ml/min; Estimated Glomerular Filt Rate > 60; Glucose 87 mg/dL (65-110); Potassium 2.9 mmol/L (3.4-5.0); Sodium 134 mmol/L (137-145)
[2022-09-07] MEDS: LORazepam (*CRX) 0.5 MG TABLET PO ×2 (05:19→13:08)
[2022-09-07] MEDS: CEPHALEXIN 500 MG CAPSULE PO ×2 (05:19→13:08)
[2022-09-07 05:33] LABS: Anisocytosis 3+ (NORMAL); Platelet Estimate Adequate (Adequate); Poikilocytosis 2+ (NORMAL); Target Cells 1+ (NORMAL)
[2022-09-07 05:36] LABS: Tear Drop Cells 1+ (NORMAL)
[2022-09-07 05:38] LABS: Schistocytes Rare (NORMAL)
[2022-09-07] MEDS: AMIODARONE HCL 200 MG TABLET PO (09:37)
[2022-09-07] MEDS: METOPROLOL SUCCINATE EXT REL 50 MG TABCR PO (09:37)
[2022-09-07] MEDS: SIMVASTATIN 20 MG TABLET PO (09:37)
--- NOTE | 2022-09-07 10:28 | PM.IMPN ---
Progress Note: A&P Assessment and Plan (1) Atrial fibrillation with rapid ventricular response: Code(s): I48.91 - Unspecified atrial fibrillation Status: Acute Assessment and Plan: Patient converted to normal sinus rhythm. Currently on amiodarone and metoprolol. Not on anticoagulation. Echocardiogram shows EF 55-60% with grade 1 diastolic dysfunction. patient will follow-up with cardiology as an outpatient. (2) Urinary retention: Code(s): R33.9 - Retention of urine, unspecified Status: Acute Assessment and Plan: Patient noted to have urine retention and Urology was consulted for Rod catheter placement. Options were discussed with family that include continuing Rod catheter versus bilateral nephrostomy tubes. Suprapubic catheter not felt to be a long-term options given his history of bladder cancer. The penile rigidity was noted and felt related to tumor versus fibrosis. 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 Appreciate Hematology/Oncology input. (4) Generalized weakness: Code(s): R53.1 - Weakness Status: Acute Assessment and Plan: Likely multifactorial related to above (5) Macrocytic anemia: Code(s): D53.9 - Nutritional anemia, unspecified Status: Acute Assessment and Plan: Hemoglobin low but stable in the 7-8 range. Continue to follow. [place] to be related to above. (6) Hypertension: Code(s): I10 - Essential (primary) hypertension Status: Acute Assessment and Plan: Patient's blood pressure was reviewed on 09/07 Blood pressure remains well controlled. Will continue to monitor. (7) Anxiety disorder: Code(s): F41.9 - Anxiety disorder, unspecified Status: Acute Assessment and Plan: Mood stable. Continue Ativan scheduled. (8) Hypokalemia: Code(s): E87.6 - Hypokalemia Status: Acute Assessment and Plan: Potassium 2.9 today. Not on medications that would lower potassium. Will replace oral potassium and recheck potassium level later today. Check magnesium level. Plan DVT prophylaxis SCDs Subjective Date/time seen: 09/07/22 10:28 Interval history: 79-year-old male with history of hypertension, hyperlipidemia, heart disease among other comorbidities is presenting with weakness and currently being treated for AFib with RVR as well as urinary retention by Urology. Assuming care. Chart reviewed. No chest pain or palpitations. No shortness of breath. No abdominal pain. Complains of pain the with meatus. Exam Narrative: AF 97.6 111/44 83 20 96% ra Gen - NARD Chest - CTA bilaterally, nml RR CV - RRR S1/S2. Tele showing NSR Abd - Soft, NT/ND, Positive BS - Rod secured draining clear yellow urine. No erythema at meatus. Some rigidity noted to the shaft Ext - No pedal edema Psych - Nml mood and affect Skin - Warm and dry Objective Data Vital Signs Vital Signs: Vital Signs - 24 hr 09/06/22 11:03 09/06/22 12:00 09/06/22 12:00 Temperature 97.9 F Pulse Rate 84 103 H 78 Respiratory Rate 24 H Blood Pressure 127/54 L 116/48 L Pulse Oximetry 93 Oxygen Delivery 09/06/22 12:00 09/06/22 13:50 09/06/22 14:00 Temperature Pulse Rate 66 72 Respiratory Rate Blood Pressure Pulse Oximetry 94 Oxygen Delivery Room Air 09/06/22 16:00 09/06/22 16:00 09/06/22 18:00 Temperature 98.5 F Pulse Rate 77 80 86 Respiratory Rate 18 Blood Pressure 112/49 L Pulse Oximetry 93 Oxygen Delivery 09/06/22 16:00 09/06/22 20:00 09/06/22 20:00 Temperature 97.8 F Pulse Rate 82 82 Respiratory Rate 20 Blood Pressure 119/50 L Pulse Oximetry 93 95 Oxygen Delivery Room Air Room Air 0
[2022-09-07] MEDS: POTASSIUM CHLORIDE 20 MEQ PACKET (FOR LIQUID) 40 MEQ PO (10:51)
--- NOTE | 2022-09-07 11:17 | PCOTNOTE ---
Patient refused treatment this session. Patient stated he walked with PT and will not get up again because he is going to a rehab today. Patient stated he would be to tired if he worked with me. RN confirmed he has potential to DC today just waiting on the fdc.
[2022-09-07 12:14] LABS: Potassium 3.6 mmol/L (3.4-5.0)
[2022-09-09 09:15] LABS: Haptoglobin 123 mg/dL (43-212)
== END 2022-09-07 13:25 | DRG 309 ==
LOC: ANHED 13:43 → ANHIMU 14:10
PROVIDERS: Internal Medicine; Internal Medicine Hematology & Oncology; Physician Assistant; Admitting Provider Student in an Organized Health Care Education/Training Program; Emergency Provider Physician Assistant; PCP Internal Medicine; Visit Provider Student in an Organized Health Care Education/Training Program
DX: I48.91 Unspecified atrial fibrillation (principal); C78.00 Secondary malignant neoplasm of unspecified lung; R33.9 Retention of urine, unspecified; C67.9 Malignant neoplasm of bladder, unspecified; D63.0 Anemia in neoplastic disease; D53.9 Nutritional anemia, unspecified; F41.9 Anxiety disorder, unspecified; I10 Essential (primary) hypertension; E78.5 Hyperlipidemia, unspecified; I25.10 Atherosclerotic heart disease of native coronary artery without angina pectoris; Z85.828 Personal history of other malignant neoplasm of skin; Z85.46 Personal history of malignant neoplasm of prostate; Z95.5 Presence of coronary angioplasty implant and graft
CPT/HCPCS: 36415; 71045; 74177; 80048; 80053; 80076; 81001; 82607; 82728; 82746; 83010; 83540; 83550; 83615; 83735; 84132; 84443; 85025; 85027; 85610; 85730; 86880; 87086; 87088; 93005; 96361; 96365; 96366; 96372; 96376; 97110; 97116; 97161; 97165; 99285; A9270; C8929; J0282; J0696; J1650; J2060; J2270; J7030; Q9957; Q9967